=== PATIENT | male | born 1960 | race Caucasian/White ===

== ENCOUNTER 2017-07-16 02:08 | Emergency (ER) | payer OTHER ==
[~2017-07-16] VITALS: Ht 185.4 cm; Wt 109.1 kg
== END 2017-07-16 03:51 | disposition left against medical advice (07) ==
LOC: SED 02:08
DX: Z02.89 Encounter for other administrative examinations (principal); Z53.21 Procedure and treatment not carried out due to patient leaving prior to being seen by health care provider

== ENCOUNTER 2017-07-19 09:17 | Emergency (ER) | payer OTHER ==
[~2017-07-19] VITALS: Ht 185.4 cm; Wt 100.0 kg
--- NOTE | 2017-07-19 09:18 | ED.REPORT ---
HPI-Extremity Problem Upper Date of Service Jul 19, 2017 ED Provider: Dr. Shoemaker The pt is a 57 y/o male with no pertinent hx who presents to the ED from intermediate with left hand ring finger injury, onset yesterday. His finger is now swollen and his ring is stuck on the finger. Nurses at the intermediate have not been able to remove it. There are no other complaints at this time. Nursing Notes Stated Complaint: SWOLLEN FINGER/RING CUT OFF Nursing Notes Reviewed: Yes Allergies: Coded Allergies: No Known Allergies (Unverified , 07/19/17) General Time Seen by MD: 09:18 Chief Complaint Finger injury left 4 Hx Obtained From: Patient Arrived By: Police Onset Occurred: Yesterday Symptom Duration: Since onset Location: : Finger left 4 Quality: Painful Severity: Current: Mild Severity: Maximum: Mild Recent Healthcare: Recent doctor visit Similar Sx Previous: No Past Medical History Past Medical History none reported Past Surgical History none reported Smoking History Unknown if Ever Smoker Ambulatory Status Independent Review of Systems Musculoskeletal: Reports: Extremity pain (left ring finger), Extremity swelling (left ring finger) Complete sys rev & neg: except as marked. Physical Exam Initial Vital Signs Vital Signs (First) Date Time Temp Pulse Resp B/P Pulse Ox O2 Delivery O2 Flow Rate FiO2 07/19/17 09:23 35.4 72 16 164/114 94 Room Air Initial VS: Reviewed Head / Eyes: Atraumatic, Normocephalic Neck: Supple, Non-tender, Full range of motion Respiratory: No respiratory distress Cardiovascular: Regular rate & rhythm, Intact distal pulses Abdomen / GI: Soft, Non-tender, No guarding, No rebound, No distention Lower Extremities: Vascular intact, Neuro intact, No swelling, No tenderness Skin: Warm, Dry, No cyanosis Neurologic: Alert, Oriented, Nonfocal General/Constitutional: Awake, Alert, No acute distress, Cooperative Upper Extremity / MS: Atraumatic, Full range of motion, No swelling, Non-tender , No erythema, No deformity, Neurologic intact, Vascular intact Wrist / Hand: Atraumatic, Full range of motion, No erythema, No deformity, Neurologic intact, Vascular intact Ring on left finger with diffuse swelling. Normal cap refull. Tenderness at the 4th MCP joing and 4th PIP joint. Interpretation & Diagnostics X-Ray Interpretation Xray Interpretation: IMPRESSION: 1. Mildly angulated fracture involving the proximal phalanx of the 4th digit without definite intra-articular extension. 2. Mild to moderate degenerative changes of the left hand. Dictated by: Mike Kerr M.D. on 07/19/2017 at 9:29 Approved by: Mike Kerr M.D. on 07/19/2017 at 9:31 X-Ray Ordered: Hand left Procedures Procedure Notes: Ring removed using a standard ring cutter. Splint Application - Fx Mgt Splint Application- Fx Mgt: Wooden tongue placed on the 4th finger and paper tape used to jos tape the 4th finger to 3rd finger. Time: 10:41 Procedure Performed by: Nurse Post-Procedure / Complications: Cap refill normal, Post splint vascular nl, Post splint neuro nl, Condition improved, Tolerated procedure well, Patient stable Re-Eval/Medical Decision Re-Evaluation/Progress #1: Time of Eval: 09:50 Re-Evaluation/Progress Note: Ring removed. Discussed the plan to take an X-ray. The pt understand and agrees. All questions answered. Re-Evaluation/Progress #2: Time of Eval: 10:37 Re-Evaluation/Progress Note: Rechecked pt. Discussed imaging results, diagnosis and plan to discharge. Pt understands and agrees with the plan. F/U instruction and RTER warning given. All questions addressed. Counseled Regarding: Diagnosis, Need for follow-up, When/why to return to ED Discharge & Departure Impression: Primary Impression: Fracture of phalanx of hand Disposition: Home Discharge Condition All VS Reviewed: Yes Condition: Stable Additional Instructions: You are fit for Care Home. You fractured your fourth finger. Follow-up with intermediate medical regarding this. Leave the splint in place. Follow-up with orthopedics as needed. Return to the ER as needed. Referrals: Anuradha Keenan (PCP) Byron Abarca MD (Family) Scribe Attestation Portions of this note were transcribed by Alan Manuel. I,, personally performed the history,physical exam and medical decision-making;I reviewed and confirmed the accuracy of the information in the transcribed note. Signed by John Panchal. 07/19/17 copies to: Anuradha Keenan Timothy S DO Jul 19, 2017 09:18 Alan Manuel Jul 19, 2017 09:26
[2017-07-19 09:23] VITALS: BP 164/114; PULSE 72; RESP 16; O2SAT 94
--- NOTE | 2017-07-19 10:33 | DRSVH ---
PROCEDURE: X-RAY LEFT HAND, MINIMUM THREE VIEWS ([id number]) INDICATIONS: 4th finger pain TECHNIQUE: 3 views of the hand(s) acquired. COMPARISON: None. FINDINGS: Bones: There is an obliquely oriented fracture identified involving the proximal to mid shaft of the proximal phalanx of the 4th digit. No definite intra-articular extension is appreciated. There is n o dislocation. No additional fractures are evident. Mild volar angulation of the fracture is eviden t. There are severe degenerative changes noted involving the proximal interphalangeal joint of the 5 th digit. Additional [id number] degenerative changes involving the interphalangeal joints and metacarpal phalangeal joints of the hand are present. There are mild to moderate degenerative change s involving the basal joints of the thumb. No suspicious osseous lesions are evident. The bone mine ralization is within normal limits. Soft tissues: No suspicious soft tissue calcifications. Soft tissue swelling involving the 4th fing er is present. No radiopaque foreign bodies are evident. IMPRESSION: 1. Mildly angulated fracture involving the proximal phalanx of the 4th digit without definite intra- articular extension. 2. Mild to moderate degenerative changes of the left hand. Dictated by: Mike Kerr M.D. on 07/19/2017 at 9:29 Approved by: Mike Kerr M.D. on 07/19/2017 at 9:31
[2017-07-19 10:56] VITALS: BP 175/106; PULSE 63; RESP 16; O2SAT 96
== END 2017-07-19 11:00 | disposition home or self-care (01) ==
LOC: SED 09:17
DX: S62.615A Displaced fracture of proximal phalanx of left ring finger, initial encounter for closed fracture (principal); X58.XXXA Exposure to other specified factors, initial encounter; Y93.89 Activity, other specified; Y99.8 Other external cause status; Y92.9 Unspecified place or not applicable; Z04.8 Encounter for examination and observation for other specified reasons

== ENCOUNTER 2017-07-30 09:58 | Inpatient (IN) | payer OTHER ==
[2017-07-30] VITALS (8 sets, daily range): BP systolic 125–161; BP diastolic 53–95; PULSE 54–103; RESP 16–20; O2SAT 93–97
[~2017-07-30] VITALS: Ht 185.4 cm; Wt 100.2 kg
[2017-07-30] MEDS: Lactated Ringer's 1,000 ML IV SCH ×4 (06:00→18:17)
[~2017-07-30 09:58] MED LIST: AMLO10TA3 PO; CeFAZolin Inj 2 GM in IV Premix 1 EACH IV ONE; Lactated Ringer's 1,000 ML IV SCH
--- NOTE | 2017-07-30 11:43 | DRSVH ---
PROCEDURE: X-RAY TOES, TWO VIEWS INDICATIONS: PRE-OP ASSESSMENT OF POSSIBLE BROKEN TOE TECHNIQUE: 3 views of the left toe(s) acquired. COMPARISON: None. FINDINGS: Bones: Postoperative changes are present related to fusion of the 4th toe. Partially threaded cannul ated screw is evident extending across the fused toe. Mild lucency surrounding the screws within the proximal phalangeal portion is evident. No complete bony fusion is evident at the fused joint. Add itional degenerative changes are noted involving the forefoot joints. No acute fracture is evident. There is no dislocation. Soft tissues: No suspicious soft tissue densities. IMPRESSION: Postoperative changes of the left 4th toe without acute fracture. Mild lucency surroundi ng the screw threads within the proximal phalangeal portion is suggestive of orthopedic hardware loos ening versus less likely infection. Dictated by: Mike Kerr M.D. on 07/30/2017 at 10:17 Approved by: Mike Kerr M.D. on 07/30/2017 at 10:41
--- NOTE | 2017-07-30 11:47 | PCM.CHPPOD ---
Subjective Date of service Jul 30, 2017 History of Present Illness 57-year-old male evaluated resting comfortably in the same day surgery unit. Podiatry consult it for evaluation of left fourth toe abscess/cellulitis. Patient states that he had a left fourth digit hammertoe correction performed by Dr. Maya burr a few years ago. This patient is currently incarcerated at [facility]. Patient states that he was recently receiving antibiotics however his toe has progressed and worsened. He states that recently saw Dr. Leyva for treatment of a finger fracture and was scheduled for surgical intervention. At the time of his preoperative evaluation he was prescribed additional oral antibiotics however this patient states that he never received these antibiotics and has not been taking them. Due to the issue with his toe his open reduction internal fixation of his finger has been canceled today. Patient denies any significant past medical history. Allergy Allergies: Coded Allergies: No Known Allergies (Unverified , 07/28/17) Medications Amlodipine (Amlodipine) 10 Mg Tablet 10 MG PO DAILY Past Medical History Surgeries: No Medical History: Surgical History: Social History Hx Substance Use: No Smoking Status: Unknown if Ever Smoker Podiatry Consult Exam Vital Signs Vital Sign - Last Date Time Temp Pulse Resp B/P Pulse Ox O2 Delivery O2 Flow Rate FiO2 07/30/17 10:15 36.4 62 16 151/95 97 Room Air Exam General: Alert, Oriented X3, Cooperative, No Acute Distress Neuro: Normal Speech, Strength at 5/5 x4 ext, Sensation Intact Lower Extremities: Left: Extremity warm Lower Extremity Pulses: Palpable: Left Dorsalis Pedis Left Posterior Tibal Podiatry WOUND : Wound Location/Description Erythema of the left fourth digit extending to the fourth metatarsal phalangeal joint. There is an abscess of the left fourth distal digit with mild purulent drainage noted. No loosening of the toenail is noted. Mild malodor is present. Pedal pulses are palpable. Gross sensation is intact. Patient has a history of arthrodesis of the left fourth digit with an intramedullary screw Assessment & Plan Assessment Abscess cellulitis with possible osteomyelitis of the left fourth toe Problems: Plan Patient evaluated today. This patient will require urgent incision and drainage of the left fourth digit abscess with removal of underlying hardware. I have discussed with the patient today that there is a significant possibility he may have already developed osteomyelitis of his fourth digit which may require amputation in the near future. Open reduction internal fixation of his finger has been canceled by Dr. Leyva today and he will be scheduled for surgical intervention of his left foot instead. I recommend admission to [facility] for IV antibiotic therapy. IV antibiotics will be started at this time with broad-spectrum antibiotics vancomycin/Zosyn, wound cultures will be taken during surgery and followed closely alter antibiotic choice as needed. This patient is currently partial weightbearing to his left heel as tolerated. This information has been discussed with the patient and the office or in charge of monitoring him during surgery today. Car Carvalho DPM Jul 30, 2017 11:47
[2017-07-30] MEDS ORDERED: Piperacillin-Tazo 3.375 Gm Inj 3.375 GM in Dextrose 5% Minibag Plus 50 ML IV ONE (11:55)
[2017-07-30] MEDS ORDERED: Vancomycin Inj 1,500 MG in 0.9% Sodium Chloride 500 ML IV ONE (12:15)
--- NOTE | 2017-07-30 14:20 | PCM.HPANE ---
Patient Data Surgeon Admitting Provider: Attending Provider:Lion Leyva MD Primary Care Physician:Anuradha Keenan Other Provider:Day Steele Anesthesia Reason for Visit Left Ring Finger Proximal Phalangeal Fracture Ht/WT & BMI Height (Feet): 6 Height (Inches): 1 Weight (Kilograms): 100.2 Body Mass Index 29.00 Allergies Coded Allergies: No Known Allergies (Unverified , 07/28/17) Past Anesthesia History Anesthesia History: Denies:: Anesthesia Reactions, Fam Anesthesia Reaction, Fam Malignant Hypertherm, Malignant Hyperthermia Diabetes History Hx Diabetes?: No MRSA MRSA: No Medications Hypertension Medication: No Home Meds Incl Beta Benny: No Reported Medications Amlodipine 10 Mg [id number] Mg PO DAILY Ref 0 07/28/17 Discontinued Reported Medications Sulfamethoxazole/Trimeth 800-160 mg (Bactrim DS)1 Each Tablet1 Tablet PO BID Ref 0 07/28/17 Ibuprofen 800 Mg [id number] Mg PO TID PRN For Pain Ref 0 07/28/17 Lorazepam 1 Mg Tablet1 Mg PO TID PRN For Anxiety Ref 0 07/28/17 History History of ENT Problems?: No HEENT History: Denies:: Cataracts Glaucoma Hearing Problem Denture Type: None Teeth Condition: Broken Teeth Tooth Decay Missing Teeth Hx of Heart Problems?: No Cardiovascular History: Denies:: AICD Abdominal Aortic Aneurism Atrial Fibrillation Cardiac Surgery Chest Pain Coronary Artery Disease Edema Heart Murmur Hypertension Pacemaker Peripheral Vascular Rheumatic Fever Thrombophlebitis Valvular Heart Disease Hx of Respiratory Problem?: No Respiratory History: Denies:: Asthma COPD Chest Surgery Cough Dyspnea Emphysema Hemoptysis Oxygen Administration Pneumonia Pulmonary Embolism Tuberculosis Use of C-PAP Machine Use of Inhalers / NEBS Hx Neurologic Problems?: No Neurological History: Denies:: Alzheimer's Disease CVA Dementia Dizziness Headaches Multiple Sclerosis Parkinson's Disease Seizures TIA Hx of GI Problems?: No Hx of Problems?: No Male Hx: Denies:: Prostate Problems Scrotal Mass Testicular Surgery Skin History: Denies:: History Skin Disorders? Pressure Ulcers Hx Musculoskeletal Problems?: No Musculoskeletal History: Denies:: Back Injury Degenerative Joint Fibromyalgia Joint Replacement Musculoskeletal Trauma Myasthenia Gravis Osteoarthritis Rheumatoid Arthritis Systemic Lupus Hx of Psycho/Social Problems?: No Hx Surgeries?: No Hx Any Other Health Problems?: No Other History: Denies:: Cancer Endocrine Disease Hospitalization Thyroid Disease History Blood Transfusions: Denies:: Accept Blood Products? Blood Transfuse Reaction Blood Transfusions Hx Diabetes: No Hx Substance Use: No Smoking Status: Unknown if Ever Smoker Have You Smoked inLast 12 mo: Yes Stop/Bang S-Snoring: Do You Snore Loudly: No T-Tired: feel tired, fatigued: No O-Obsered: Observed not breath: No P-Blood Pressure: treated: No B- Body Mass Index > 35 kg/m2: No A- Age over 50: Yes N- Neck Large Circumference: No G- Gender Male: Yes VIPIN Total Score: 2 Risk Assessment Category Category 1A: Patient has history of documented sleep apnea, and HAS NOT received any narcotic, sedative or anesthesia administration during this stay. Category 1B: Patient has history of documented sleep apnea, and HAS received any narcotic , sedative or anesthesia administration during this stay Category 2: Patient has SUSPECTED Obstructive Sleep Apnea, and HAS received any narcotic , sedative or anesthesia administration during this stay. Category 3: Patient has SUSPECTED Obstructive Sleep Apnea and HAS NOT received narcotic, sedative or anesthesia administration during this stay. Category 4: Outpatient in Procedural Areas with known sleep apnea or who screen positive for High Risk via the STOP/BANG questionnaire. Exam Exam Vital Signs Vital Signs Date Time Temp Pulse Resp B/P Pulse Ox O2 Delivery O2 Flow Rate FiO2 07/30/17 10:15 36.4 62 16 151/95 97 Room Air General Appearance: Alert, Oriented X3 HEENT/AIRWAY: MP 2, Neck Movement (FROM) Lungs: Clear to Auscultation, Clear to Percussion Heart: Exam Unremarkable, Regular Rate/Rhythm Meds/Labs/Diagnostics Admission Meds Current Medications Vancomycin HCl/ Dextrose/Water (Vancocin Inj/ D5W) 500 ml @ 333.333 mls/hr ONCE ONCE IV Last administered on 07/30/17t 13:02; Start 07/30/17 at 11:55; Stop 07/30/17 at 12:12; Status DC Plan Impression Patient chart reviewed, patient interviewed and anesthestic plan with risks, benefits, and alternatives discussed, and informed consent obtained. ASA Physical Status: ASA2 Mod Systemic Disease Anesthetic Plan: MAC (with GA as backup) Bene/Risks/Altern/Consents: Yes HP Complete Prior to Induction: Yes Osmar Espinoza MD Jul 30, 2017 14:16
[2017-07-30] MEDS ORDERED: Bupivacaine-MPF 0.5% 30 mL Inj INFILTRATE ONE (15:00)
[2017-07-30] MEDS ORDERED: Atropine 0.4 mg/mL Inj IVPUSH PRN (15:05)
[2017-07-30] MEDS ORDERED: HYDROmorphone 1 mg/mL Inj IVPUSH PRN (15:05)
[2017-07-30] MEDS ORDERED: fentaNYL-PF 50 mCg/mL 2 mL Inj IVPUSH PRN (15:05)
[2017-07-30] MEDS ORDERED: EPHEDrine Sulfate 50 mg/mL Inj IVPUSH PRN (15:05)
[2017-07-30] MEDS ORDERED: Lactated Ringer's 500 ML IV PRN (15:05)
[2017-07-30] MEDS ORDERED: Ondansetron 2 mg/mL 2 mL Inj IVPUSH PRN ×2 (15:05→16:35)
[2017-07-30] MEDS ORDERED: Lactated Ringer's 1,000 ML IV SCH (15:05)
[2017-07-30] MEDS ORDERED: Phenylephrine 10,000 mCg/mL Inj IVPUSH PRN (15:05)
[2017-07-30] MEDS ORDERED: Labetalol 5 mg/mL 20 mL Inj IV PRN (15:05)
[2017-07-30] MEDS ORDERED: MetoCLOpramide 5 mg/mL 2 mL Inj IVPUSH PRN (15:05)
--- NOTE | 2017-07-30 15:31 | PCM.PODPO ---
Podiatry Operative Report Date of Service: Jul 30, 2017 Date of Service Jul 30, 2017 Pre Operative Diagnosis Abscess cellulitis left fourth toe Post Operative Diagnosis Same Procedure Incision and drainage left fourth digit with removal of hardware Surgeon Surgeon: Car Carvalho DPM Assistants: None Indication for Procedure Abscess cellulitis left fourth toe Findings Abscess of the distal left fourth toe associated with protruding left fourth digit internal fixation Details of Procedure Patient was identified in the preoperative holding area. A podiatry consultation was placed earlier today regarding an infected left fourth digit. This patient was previously scheduled for open reduction internal fixation of the left hand. The decision was made to cancel the hand procedure and to proceed with incision and drainage of his infected left fourth toe. This patient had a history of arthrodesis of the left fourth digit with a medullary screw. Patient was transported into the operating room and placed on the operating room table in the normal supine position. The patient was then prepped and draped in the normal aseptic technique. Attention was first paid to the left fourth toe. An abscess was noted of the left fourth distal phalanx. A wound culture was taken with a culture swab and a moderate amount of purulent discharge approximately 1.5 mL was noted. A #15 blade was used to make a transverse incision extending the present ulceration and additional 0.5 cm to a total of 1.3 cm x 0.8 cm x 0.7 cm in depth. The abscess site was closely flushed. Internal hardware was clearly visible within the abscess. The hardware was removed without issue. The wound was again closely flushed with large amounts of normal saline. A rongeur was utilized to remove any necrotic and nonviable soft tissue from the wound bed. Healthy bleeding tissue was exposed. This wound was then packed with 1/4 inch iodoform packing gauze dressed with 4 x 4 gauze Terra Kerlix and a minimally compressive Kermit bandage. The patient was awoken by anesthesia. No competitions occur during this procedure. Grafts, Implants: None Complications There were no periprocedural complications identified. Condition Stable Anesthetic Administered: MAC Catheters: None Output, Estimated Blood Loss: 10 Blood Admin during surgery: No Surgical Cast or Splint: None Surgical Specimen Removed: No Specimen sent to Pathology: No Post Operative Plan Suggest admission to hospitalist service for IV antibiotic therapy with podiatry consultation for local wound care Keep dressing clean dry and intact, dressing is to be changed by podiatry service only. Continue current IV antibiotics vanco/Zosyn unless suggested otherwise by hospitalist service recommendation Transfer to room 1006 when stable to continue care Advance diet as tolerated Car Carvalho DPM Jul 30, 2017 15:31
--- NOTE | 2017-07-30 15:32 | PCM.ANEP1 ---
Post Anesthesia PACU Phase 1 Assessment Vital Signs Vital Signs Date Time Temp Pulse Resp B/P Pulse Ox O2 Delivery O2 Flow Rate FiO2 07/30/17 10:15 36.4 62 16 151/95 97 Room Air Anesthetic Administered: MAC Level of Alertness: Awake, talking COATES's with Equal Strength: Yes Pain: No Nausea or Vomiting: No CV Function & Hydration Stable: Yes Airway Device: Oxygen Delivery: Room Air Lungs: Clear to Auscultation, Clear to Percussion PACU Phase 2 Assessment Complications: No Follow up Care: No Patient Instructions Provided: N/A Comments See anesth record for PACU VS. Anesth PACU VSS Osmar Espinoza MD Jul 30, 2017 15:32
--- NOTE | 2017-07-30 16:00 | NUR ---
Arrived on Unit Patient arrived on floor from PACU in stable condition. Patient transferred self from stretcher to bed. VSS. Denies pain and nausea at this time. Dressing CDI. LR @80mL/hr. RA. Patient orientated to call light, bed, and BRP. Call light and tray table within reach. Will continue to monitor patient hourly.
--- NOTE | 2017-07-30 16:22 | PCM.HPMED ---
Subjective Date of Service Jul 30, 2017 Primary Provider: Admitting Physician: Primary Care Physician: Anuradha Keenan Attending Physician: Lion Leyva MD Chief Complaint: Pain in the left 4th toe History of Present Illness: Patient was past medical history of hypertension, alcoholism(last drink 2 weeks ago), left fourth digit hammertoe correction performed by Dr. Maya burr a few years ago. Patient developed pain in his 4th toe. He was evaluated by cell tester and advised admission to the hospital for evaluation and treatment of Abscess cellulitis with possible osteomyelitis of the left fourth toe with urgent incision and drainage of the left fourth digit abscess with removal of underlying hardware. Today patient underwent I&D. After the surgery he is doing well. Cultures were sent today. Review of Systems: REVIEW OF SYSTEMS: GENERAL: no malaise, no fevers., SEE HPI HEENT: Negative for frequent or significant headaches All other reviewed and negative other than HPI. Allergies Coded Allergies: No Known Allergies (Unverified , 07/28/17) PMH Family History Hypertension Social History Hx Alcohol Use: Yes Hx Substance Use: No Hx Tobacco Use: No Smoking Status: Unknown if Ever Smoker Exam Vital Signs Vital Sign - Last Date Time Temp Pulse Resp B/P Pulse Ox O2 Delivery O2 Flow Rate FiO2 07/30/17 15:50 36.5 64 16 147/60 96 Room Air Exam GENERAL: Alert, not in distress, cooperative HEAD: atraumatic, normocephalic, no bruises. EYES: MELLISSA, EOMI, anicteric, able to fully open and close eyelids SKIN: Skin color normal, turgor normal. No visible rashes or lesions. EAR, NOSE, MOUTH, THROAT: Lips, oral mucosa, tongue gums, oropharynx are moist , pink, no lesions. Ears normal appearance, no lesions. NECK: no jugulovenous distention; supple ROM normal. RESPIRATORY: Lungs clear to auscultation. Good diaphragmatic excursion. CARDIAC: normal S1 and S2; no rubs, murmurs, or gallops; regular rate and rhythm ABDOMEN: Abdomen soft, non-tender. BS normal. No masses or organomegaly. MUSCULOSKELETAL: ROM full, muscles are not tender EXTREMITIES: no pitting edema in LE, no new deformities or skin discoloration. L foot in dressing. NEURO: Alert, oriented X 3, Sensation grossly intact., Cranial nerves II-XII intact, Grossly normal motor function. PULSES: 2+ radial, 2+ carotid Lab and Diagnostics X-Rays, CTs and MRIs XR IMPRESSION: Postoperative changes of the left 4th toe without acute fracture. Mild lucency surrounding the screw threads within the proximal phalangeal portion is suggestive of orthopedic hardware loosening versus less likely infection. Assessment & Plan 57-year-old male with a past medical history of hypertension, alcoholism, status post left 4th digit hammertoe correction several years ago admitted for evaluation of pain in the L fourth left toe. Patient underwent I and D with hardware removal today. Cultures were sent. Patient was started on vancomycin and Zosyn IV. Cellulitis/abscess of the fourth digit, status post I&D - Stable - Continue with IV vancomycin/Zosyn - Follow up cultures Hypertension - Stable - Continue with amlodipine Alcoholism - last drink 2 weeks ago - No need for CIWA DVT PROPHYLAXIS: heparin Code status: full code Disposition: discharge in 1-3 days after patient improves. Labs, radiology tests reviewed. Plan of care, medication side effects, home medication, diagnostic procedures and available alternatives were discussed and reviewed with patient. All questions answered. Patient verbalized understanding, approved and agreed to plan of care. - Dharmesh Becker MD Jul 30, 2017 16:22
[2017-07-30] MEDS ORDERED: Alum-Mag Hydrox-Simeth 30 mL Suspension PO PRN (16:35)
[2017-07-30] MEDS: Vancomycin Dose per Pharmacist XX SCH (16:40)
[2017-07-30 17:18] LABS: BASOPHILS % (AUTO) 0.6 % (0-3); EOSINOPHILS % (AUTO) 1.9 % (0-5); MONOCYTES % (AUTO) 9.9 % (4-12); Mean Corpuscular Hemoglobin 30.5 pg (27.0-35.0); Mean Corpuscular Volume 90.3 fL (81-100); NEUTROPHILS % (AUTO) 57.4 % (40-74); Platelet Count 228 bil/L (150-400)
--- NOTE | 2017-07-30 18:01 | PCM.CONPHA ---
Subjective Requesting Provider: Dharmesh Becker MD Pain in the left 4th toe Reason for Pharmacy Consult: Vancomycin Dosing Assessment/Plan Assessment/Plan Vancomycin dosing for patient with a 4th toe abscess and cellulitis who is just post I and D with hardware removal: Goal trough= 15-20 Ht 73 inches Wt 100 K Serum Cr 0.99 [facility]inine Cl[facility] WBC=4.8 Vancomycin 1.5 Grams IV was given at 1300. Subsequent dosing will be vancomycin 1.75 Grams IV q 12 hours (dosing confirmed in [facility]) with a trough prior to the 4th total dose scheduled for midnight the morning of . Pharmacy will follow renal function and evaluate the trough for any necessary dosing adjustments. The patient is receiving pip/tazo concurrently. Radha Hernandez [facility] Jul 30, 2017 18:00
[2017-07-30] MEDS: HYDROcodone-APAP 5-325 mg Tablet PO PRN ×2 (18:17→23:12)
[2017-07-30] MEDS ORDERED: Piperacillin-Tazo 3.375 Gm Inj 3.375 GM in Dextrose 5% Minibag Plus 50 ML IV SCH (18:30)
[2017-07-30] MEDS: HYDROmorphone 0.5 mg/0.5 mL iSecure Syringe IVPUSH PRN (19:47)
[2017-07-31 00:52] VITALS: BP 132/83; PULSE 60; RESP 18; O2SAT 96
[2017-07-31] MEDS: Vancomycin Inj 1,750 MG in 0.9% Sodium Chloride 500 ML IV SCH ×2 (01:49→14:59)
[2017-07-31] MEDS: HYDROmorphone 0.5 mg/0.5 mL iSecure Syringe IVPUSH PRN (01:50)
--- NOTE | 2017-07-31 06:15 | NUR ---
Peripheral IV Patient pulled his IV out. New peripheral IV was started and patients IV medications were continued where they left off. Patient states pain is 4/10 this morning after sleeping for a while. Pain medications given. Care coninues.
[2017-07-31 06:29] VITALS: BP 125/53; PULSE 103; RESP 16; O2SAT 97
[2017-07-31] MEDS: Lactated Ringer's 1,000 ML IV SCH ×2 (07:00→19:30)
[2017-07-31] MEDS: HYDROcodone-APAP 5-325 mg Tablet PO PRN ×3 (07:04→18:14)
[2017-07-31] MEDS: Vancomycin Dose per Pharmacist XX SCH (08:30)
[2017-07-31] MEDS: Piperacillin-Tazo 3.375 Gm Inj 3.375 GM in Dextrose 5% Minibag Plus 50 ML IV SCH ×2 (10:17→18:12)
--- NOTE | 2017-07-31 10:22 | PCM.PNPOD ---
Subjective Date of Service: Jul 31, 2017 Date of Service: Jul 31, 2017 Visit Information: Reason for Visit Left Ring Finger Proximal Phalangeal Fracture Surgery/Surgery Date I&D L FOOT W/REMOVAL OF HARDWARE 07/30/17 Post-Op Day # Date of Admission: Hospital Day # Subjective: 57-year-old male who underwent removal of infected screw fourth digit left foot yesterday byDr Carvalho, is seen this morning for follow-up and dressing change. Patient complains of mild to moderate pain in the toe possibly due to bandage being slightly tight. He denies constitutional symptoms such as fever chills or malaise. Objective Vital Sign - Last Date Time Temp Pulse Resp B/P Pulse Ox O2 Delivery O2 Flow Rate FiO2 07/31/17 06:29 36.8 103 16 125/53 97 Room Air Intake and Output 07/30/17 07/30/17 07/31/17 Cumulative From/Thru 15:00 23:00 07:00 07/28/17 11:38 - 07/31/17 06:29 Intake Total 550 ml 670 ml 800 ml 2020 ml Output Total 10 ml 510 ml 2200 ml 2720 ml Balance 540 ml 160 ml -1400 ml -700 ml Intake Oral 620 ml 800 ml 1420 ml IV Total 550 ml 50 ml 600 ml Output Urine Total 500 ml 2200 ml 2700 ml Estimated Blood Loss 10 ml 10 ml 20 ml # Bowel Movements 0 0 0 Result Diagram: 07/30/17 1710 07/31/17 0520 Lab Test 07/30/17 17:10 07/31/17 05:20 White Blood Count 4.8th/mm3 (3.8-10.1) Red Blood Count 4.76mil/mm3 (4.40-5.80) Hemoglobin 14.5g/dL (13.8-17.2) Hematocrit 43.0% (41.0-50.0) Mean Corpuscular Volume 90.3fL (81-100) Mean Corpuscular Hemoglobin 30.5pg (27.0-35.0) Mean Corpuscular Hemoglobin Concent 33.7% (32.0-37.0) Red Cell Distribution Width 12.5% (12.3-15.4) Platelet Count 228bil/L (150-400) Neutrophils (%) (Auto) 57.4% (40-74) Lymphocytes (%) (Auto) 30.2% (14-46) Monocytes (%) (Auto) 9.9% (4-12) Eosinophils (%) (Auto) 1.9% (0-5) Basophils (%) (Auto) 0.6% (0-3) Sodium Level 139mEq/L (134-144) Potassium Level 3.7mEq/L (3.5-5.2) Chloride Level 101mEq/L (97-108) Carbon Dioxide Level 25mmol/L (18-29) Blood Urea Nitrogen 11mg/dL (6-24) Estimat Glomerular Filtration Rate 83mL/min (>59) Glucose Level 99mg/dL (60-99) Calcium Level 8.8mg/dL (8.5-10.1) Total Bilirubin 0.3mg/dL (0.0-1.2) Aspartate Amino Transf (AST/SGOT) 20U/L (0-50) Alanine Aminotransferase (ALT/SGPT) 33U/L (0-44) Alkaline Phosphatase 70U/L (25-150) Total Protein 6.9g/dL (6.4-8.4) Albumin 4.0g/dL (3.4-5.0) Creatinine 0.93mg/dL (0.76-1.27) Exam General: Alert, Oriented X3, Cooperative, No Acute Distress Lungs: Clear to Auscultation, Clear to Percussion Lower Extremities: Left: Extremity warm Lower Extremity Pulses: Palpable: Left Dorsalis Pedis Left Posterior Tibal Surgical Cast or Splint: None Additional Information: Dressing of the left foot dry and intact. Upon removal fourth digit is noted to be diffusely edematous and mildly hyperemic with no apparent extension proximal to the fourth metatarsal phalangeal joint. There is a 5 x 5 mm distal wound with Nu Gauze packing. Slight purulence noted upon removal of this packing. Pulses are readily palpable, capillary refill is brisk, the foot is sensate. Assessment & Plan Impression Probable osteomyelitis of fourth digit left foot Problems: Plan Discussed findings with patient he is aware that amputation of the fourth digit may be necessary but prefers to defer this at least for several days pending response to continued IV or by mouth antibiotics. A Betadine solution dressing and noncompressive gauze bandage is reapplied. We will obtain postoperative radiographs and since infection is well localized to the toe with no significant proximal extension this condition could be managed as an outpatient however this determination will be left to the hospitalist staff, podiatry will continue to follow as an inpatient and if patient is discharged he should remain on appropriate by mouth antibiotics, applied Betadine solution dressing to the tip of the toe once daily followed by a noncompressive gauze bandage, use a postoperative shoe and make an appointment with either or myself for early next week. Marco Colindres DPM Jul 31, 2017 10:22
--- NOTE | 2017-07-31 10:58 | PCM.PNMED ---
Subjective Date of Service Jul 31, 2017 Exam Vital Signs Vital Sign - Last Date Time Temp Pulse Resp B/P Pulse Ox O2 Delivery O2 Flow Rate FiO2 07/31/17 06:29 36.8 103 16 125/53 97 Room Air Intake and Output 07/30/17 07/30/17 07/31/17 Cumulative From/Thru 15:00 23:00 07:00 07/28/17 11:38 - 07/31/17 06:29 Intake Total 550 ml 670 ml 800 ml 2020 ml Output Total 10 ml 510 ml 2200 ml 2720 ml Balance 540 ml 160 ml -1400 ml -700 ml Intake Oral 620 ml 800 ml 1420 ml IV Total 550 ml 50 ml 600 ml Output Urine Total 500 ml 2200 ml 2700 ml Estimated Blood Loss 10 ml 10 ml 20 ml # Bowel Movements 0 0 0 Lab and Diagnostics Result Diagram: 07/30/17 1710 07/31/17 0520 X-Rays, CTs and MRIs XR IMPRESSION: Postoperative changes of the left 4th toe without acute fracture. Mild lucency surrounding the screw threads within the proximal phalangeal portion is suggestive of orthopedic hardware loosening versus less likely infection. Assessment & Plan 57-year-old male with a past medical history of hypertension, alcoholism, status post left 4th digit hammertoe correction several years ago admitted for evaluation of pain in the L fourth left toe. Patient underwent I and D with hardware removal today. Cultures were sent. Patient was started on vancomycin and Zosyn IV. Cellulitis/abscess/osteomyelitis of the fourth digit, status post I&D - Stable - POdietry following - abscess culture - STAPH, PROBABLE STAPH AUREUS Plan - Continue with IV vancomycin/Zosyn - Follow up cultures - Podiatry recommended - amputation of the fourth digit may be necessary; patient would like to think about it. Hypertension - Stable - Continue with amlodipine Alcoholism - last drink 2 weeks ago - No need for CIWA DVT PROPHYLAXIS: heparin Code status: full code Labs, radiology tests reviewed. Plan of care, medication side effects, home medication, diagnostic procedures and available alternatives were discussed and reviewed with patient. All questions answered. Patient verbalized understanding, approved and agreed to plan of care. - VTE Mechanical Devices: Intermittant Pneumatic CD Dharmesh Becker MD Jul 31, 2017 10:58
--- NOTE | 2017-07-31 11:48 | DRSVH ---
PROCEDURE: X-RAY LEFT FOOT COMPLETE, MINIMUM THREE VIEWS ([id number]) INDICATIONS: 4th toe infection left TECHNIQUE: 3 views of the foot were acquired. COMPARISON: None. FINDINGS: Bones: There are faint lucencies identified within the distal fourth phalanx and distal aspect of the fourth middle phalanx. Soft tissues: No tibiotalar joint effusion. Achilles tendon appears normal. Prominent fourth digit soft tissue edema is present. IMPRESSION: Fourth digit soft tissue edema with areas of lucency within the distal and middle phalanx es, suspicious for early osteomyelitis. Dictated by: Jamila Mckenzie M.D. on 07/31/2017 at 11:45 Approved by: aJmila Mckenzie M.D. on 07/31/2017 at 11:46
[2017-07-31 12:33] VITALS: BP 133/75; PULSE 70; RESP 16; O2SAT 94
[2017-07-31] MEDS: Polyethylene Glycol (PEG) 17 Gm Powder PO PRN (12:38)
--- NOTE | 2017-07-31 17:53 | NUR ---
Pain / Ambulation Pain 5-6/10 in left foot and 3/10 in hand. Pain controlled with 1tabs Vicodin as needed for pain Q4hrs. Ambulated gingerly as needed to bathroom heel touch only. Otherwise pt has been resting comfortably and making needs met appropriately. Care continues
[2017-07-31 20:18] VITALS: BP 138/75; PULSE 64; RESP 18; O2SAT 95
[2017-08-01] MEDS ORDERED: Vancomycin Serum Trough XX ONE
--- NOTE | 2017-08-01 01:01 | NUR ---
Pain Patient states that his pain has decreased and is a 2/10. No need for pain medication at this time. Patient A&OX3. UP independent at bedside using urinal. Vitals stable. Patient had a BM this shift. Care of patient turned over to Laquita CORNEJO at 0120.
--- NOTE | 2017-08-01 01:25 | NUR ---
Received report from Susan Guallpa
[2017-08-01] MEDS: HYDROcodone-APAP 5-325 mg Tablet PO PRN ×3 (01:50→22:41)
--- NOTE | 2017-08-01 02:54 | PCM.PHAPRO ---
Progress Date of Service: Aug 01, 2017 Requesting Provider: Dharmesh Becker MD Pain in the left 4th toe possible osteomyelitis - 57 y/o male patient is receiving Vancomycin (with Zosyn) for possible osteomyelitis 1750mg iv q12h. Last 24hr, I&D with hardware removal was performed; renal function is stable; and lactate ringer runs @80ml/hr - Trough level is at 15.2 with last Vancomycin dose was given 2 hours late. Considering the drug accumulation, will continue with current dose. - Patient is in stable condition and possible be discharged soon. Floor pharmacist will order next Vancomycin level if necessary Thank you Wilfredo Osborne, PharmD Maurilio Osborne Aug 01, 2017 02:54
[2017-08-01] MEDS: Vancomycin Inj 1,750 MG in 0.9% Sodium Chloride 500 ML IV SCH ×2 (03:36→13:30)
[2017-08-01] MEDS: Piperacillin-Tazo 3.375 Gm Inj 3.375 GM in Dextrose 5% Minibag Plus 50 ML IV SCH ×4 (05:17→21:09)
[2017-08-01 05:26] VITALS: BP 145/91; PULSE 60; RESP 18; O2SAT 96
--- NOTE | 2017-08-01 07:38 | PCM.PNMED ---
Subjective Date of Service Aug 01, 2017 Subjective No problems overnight. No fever. Pain under control. Exam Vital Signs Vital Sign - Last Date Time Temp Pulse Resp B/P Pulse Ox O2 Delivery O2 Flow Rate FiO2 08/01/17 05:26 36.9 60 18 145/91 96 Room Air Intake and Output 07/31/17 07/31/17 08/01/17 Cumulative From/Thru 15:00 23:00 07:00 07/28/17 11:38 - 08/01/17 07:00 Intake Total 3597 ml 2200 ml 7817 ml Output Total 1675 ml 2600 ml 6995 ml Balance 1922 ml -400 ml 822 ml Intake Oral 1397 ml 800 ml 3617 ml IV Total 2200 ml 1400 ml 4200 ml Output Urine Total 1675 ml 2600 ml 6975 ml Estimated Blood Loss 20 ml # Bowel Movements 0 0 Exam Skin: warm and dry 5-6 cm healing laceration to outer lower left leg with sutures HENT; dry no lesions Eyes; dante eom intact CV; reg no murmur Resp; Clear GI; soft non acute benign Neuro; CN 2-12 intact, no focal defects Extre; Bandages to Left foot, Bandages to left hand Lab and Diagnostics Result Diagram: 07/30/17 1710 08/01/17 0508 X-Rays, CTs and MRIs XR IMPRESSION: Postoperative changes of the left 4th toe without acute fracture. Mild lucency surrounding the screw threads within the proximal phalangeal portion is suggestive of orthopedic hardware loosening versus less likely infection. Assessment & Plan 57-year-old male with a past medical history of hypertension, alcoholism, status post left 4th digit hammertoe correction several years ago admitted for evaluation of pain in the L fourth left toe. Patient underwent I and D with hardware removal today. Cultures were sent. Patient was started on vancomycin and Zosyn IV. # Cellulitis/abscess/osteomyelitis of the left fourth digit foot, poa, active - status post I&D, removal of heardwear 07-30-17 - probable staph aures on culture, vanco and zosyn - Podiatry recommended - amputation of the fourth digit may be necessary; patient would like to think about it. - pain management with IV dilaudid prn if needed or oral norco #Subactue laceration to left leg above ankle, poa, stable -sutures placed ER about 07-14-17 -remove sutures #Broken finger left 4th, poa, active -fractured about 07-15-18 -Dr Wright waiting to operate on this until current toe infection improved or treated #Hypertension - Stable - Continue with amlodipine Alcoholism - last drink 2 weeks ago - No need for CIWA DVT PROPHYLAXIS: heparin Code status: full code Labs, radiology tests reviewed. Plan of care, medication side effects, home medication, diagnostic procedures and available alternatives were discussed and reviewed with patient. All questions answered. Patient verbalized understanding, approved and agreed to plan of care. - VTE Mechanical Devices: Intermittant Pneumatic CD Clarence Jacob MD Aug 01, 2017 07:38
[2017-08-01] MEDS: Vancomycin Dose per Pharmacist XX SCH (08:30)
--- NOTE | 2017-08-01 10:31 | PCM.PNPOD ---
Subjective Date of Service: Aug 01, 2017 Date of Service: Aug 01, 2017 Visit Information: Reason for Visit Left Ring Finger Proximal Phalangeal Fracture Surgery/Surgery Date I&D L FOOT W/REMOVAL OF HARDWARE 07/30/17 Post-Op Day # Date of Admission: Jul 30, 2017 at 16:12 Hospital Day # Subjective: Patient is seen 48 hours post removal of infected hardware fourth toe left foot. Patient notes decreased pain, states appetite is good. Denies fever chills malaise. He states he has aware comfortable with the probable necessity for digital amputation. Objective Vital Sign - Last Date Time Temp Pulse Resp B/P Pulse Ox O2 Delivery O2 Flow Rate FiO2 08/01/17 05:26 36.9 60 18 145/91 96 Room Air Intake and Output 07/31/17 07/31/17 08/01/17 Cumulative From/Thru 15:00 23:00 07:00 07/28/17 11:38 - 08/01/17 07:00 Intake Total 3597 ml 2200 ml 7817 ml Output Total 1675 ml 2600 ml 6995 ml Balance 1922 ml -400 ml 822 ml Intake Oral 1397 ml 800 ml 3617 ml IV Total 2200 ml 1400 ml 4200 ml Output Urine Total 1675 ml 2600 ml 6975 ml Estimated Blood Loss 20 ml # Bowel Movements 0 0 Result Diagram: 07/30/17 1710 08/01/17 0508 Lab Test 07/30/17 17:10 08/01/17 00:01 08/01/17 05:08 White Blood Count 4.8th/mm3 (3.8-10.1) Red Blood Count 4.76mil/mm3 (4.40-5.80) Hemoglobin 14.5g/dL (13.8-17.2) Hematocrit 43.0% (41.0-50.0) Mean Corpuscular Volume 90.3fL (81-100) Mean Corpuscular Hemoglobin 30.5pg (27.0-35.0) Mean Corpuscular Hemoglobin Concent 33.7% (32.0-37.0) Red Cell Distribution Width 12.5% (12.3-15.4) Platelet Count 228bil/L (150-400) Neutrophils (%) (Auto) 57.4% (40-74) Lymphocytes (%) (Auto) 30.2% (14-46) Monocytes (%) (Auto) 9.9% (4-12) Eosinophils (%) (Auto) 1.9% (0-5) Basophils (%) (Auto) 0.6% (0-3) Sodium Level 139mEq/L (134-144) Potassium Level 3.7mEq/L (3.5-5.2) Chloride Level 101mEq/L (97-108) Carbon Dioxide Level 25mmol/L (18-29) Blood Urea Nitrogen 11mg/dL (6-24) Estimat Glomerular Filtration Rate 83mL/min (>59) Glucose Level 99mg/dL (60-99) Calcium Level 8.8mg/dL (8.5-10.1) Total Bilirubin 0.3mg/dL (0.0-1.2) Aspartate Amino Transf (AST/SGOT) 20U/L (0-50) Alanine Aminotransferase (ALT/SGPT) 33U/L (0-44) Alkaline Phosphatase 70U/L (25-150) Total Protein 6.9g/dL (6.4-8.4) Albumin 4.0g/dL (3.4-5.0) Vancomycin Level Trough 15.2mcg/mL Creatinine 0.92mg/dL (0.76-1.27) Exam General: Alert, Oriented X3, Cooperative, No Acute Distress Lungs: Clear to Auscultation, Clear to Percussion Lower Extremities: Left: Extremity warm Lower Extremity Pulses: Palpable: Left Dorsalis Pedis Left Posterior Tibal Surgical Cast or Splint: None Additional Information: Reexam shows continued serous drainage distal fourth toe, the digit is approximately twice the diameter of the adjacent third toe although erythema is somewhat improved. There is no proximal extension beyond the metatarsal phalangeal joint. Repeat x-ray post screw removal does show significant intramedullary osteolysis of the distal interphalangeal joint, distal most proximal phalanx with minimal overt radiographic evidence of osteomyelitis of the proximal phalangeal base. Assessment & Plan Impression Osteomyelitis fourth toe left foot with questionable involvement of the proximal phalangeal base, patient will require at least partial fourth digit amputation. Problems: Plan Foot is redressed today, patient would like to proceed with amputation of the digit as soon as possible, will schedule in the a.m. Pain Management: Patient feels he needs less pain medication is advised he can ask for plain Tylenol or low-dose Vicodin rather than Percocet. Marco Colindres DPM Aug 01, 2017 10:31
[2017-08-01 12:50] VITALS: BP 141/90; PULSE 56; RESP 18; O2SAT 95
--- NOTE | 2017-08-01 14:36 | NUR ---
Social Work: Screening/Multidisciplinary Rounds D: EMR reviewed. Pt is a 57 y/o male [place] - readmit score not assigned - for left ring finger proximal phalangeal per H&P. Pt's insurance is [facility] and [facility]. PCP is GENE Jean. Pt's NOK is spouse Ilana Aguilar [phone]. SW met with pt to discuss DPOA/Advanced directive ppw. SW provided DPOA/advanced directive ppw and encouraged pt to return a copy to the hospital once complete. SW screened pt's EMR - pt does not screen in for full assessment. Pt discussed in multidisciplinary rounds and is not medically stable for discharge today - anticipate 2-3 more days. Pt to go to OR today for surgery. No anticipated discharge needs at this time, no MD orders received. SW will continue to follow for needs. Pt arrived from [facility] and was released for hospitalization. SW met with pt regarding discharge - pt stated he is required to self-report back to [facility] upon discharge. SW explained that is pt's responsibility. Pt asked if SW reports when pt is discharged - SW stated that the hospital does not report when pt's discharge due to HIPPA and it is pt's responsibility to return to [facility] if that is what is expected of him. Pt stated his spouse will transport pt back to [facility] when he is medically stable for discharge. A: Pt who is independent at baseline. P: Pt anticipated to discharge back to [facility] (self-report) with spouse to transport via POV. Pt to go to OR today. No discharge needs at this time, no MD orders received. SW will continue to follow for needs. GAMAL Virgen
--- NOTE | 2017-08-01 16:07 | NUR ---
Pain/operative plan Pt stated he wished to use "mortgage assistant" pain medication. Tylenol given; pt expressed satisfaction. Has since denied any pain in foot or finger. Plan to go to OR tomorrow am; pt aware of NPO after midnight instructions and agreeable.
--- NOTE | 2017-08-01 18:20 | NUR ---
Sutures L lower leg sutures removed and incision dressed by sash clamp operator.
[2017-08-01 19:30] VITALS: BP 137/75; PULSE 55; RESP 18; O2SAT 95
[2017-08-02] VITALS (11 sets, daily range): BP systolic 122–165; BP diastolic 75–101; PULSE 53–82; RESP 11–18; O2SAT 95–99
[2017-08-02] MEDS: Vancomycin Inj 1,750 MG in 0.9% Sodium Chloride 500 ML IV SCH (01:13)
[2017-08-02] MEDS: HYDROmorphone 0.5 mg/0.5 mL iSecure Syringe IVPUSH PRN ×2 (01:19→05:13)
--- NOTE | 2017-08-02 03:23 | NUR ---
Activity/pain Pt pain to foot from 4-05/08 and was taking 2 tab of [place] at beginning of shift to control pain. Pt reported this to be more effective than Tylenol alone. Pt made NPO at midnight and switched over to Dilaudid 0.5mg IVP. Pt reporting pain tolerable. Left foot dressed with Kermit wrap and is CDI.
[2017-08-02] MEDS: Piperacillin-Tazo 3.375 Gm Inj 3.375 GM in Dextrose 5% Minibag Plus 50 ML IV SCH ×4 (05:07→20:22)
[2017-08-02] MEDS: HYDROcodone-APAP 5-325 mg Tablet PO PRN ×4 (07:55→23:56)
[2017-08-02] MEDS ORDERED: Dexamethasone 4 mg/mL Inj ONE (09:03)
[2017-08-02] MEDS ORDERED: Propofol 10,000 mCg/mL 20 mL Inj ONE (09:03)
[2017-08-02] MEDS ORDERED: fentaNYL-PF 50 mCg/mL 2 mL Inj ONE (09:03)
[2017-08-02] MEDS ORDERED: MetoCLOpramide 5 mg/mL 2 mL Inj ONE (09:03)
--- NOTE | 2017-08-02 09:07 | PCM.PNMED ---
Subjective Date of Service Aug 02, 2017 Subjective Walking in room. No problems overnight. Plan is to do a partial amputation of toe today. Culture shows MSSa. Case discussed with Dr. Colindres in person yesterday evening. Exam Vital Signs Vital Sign - Last Date Time Temp Pulse Resp B/P Pulse Ox O2 Delivery O2 Flow Rate FiO2 08/02/17 07:53 60 18 165/94 96 Room Air 08/02/17 06:39 36.6 Intake and Output 08/01/17 08/01/17 08/02/17 Cumulative From/Thru 15:00 23:00 07:00 07/28/17 11:38 - 08/02/17 06:27 Intake Total 1708 ml 897 ml 98696 ml Output Total 2900 ml 1550 ml 35692 ml Balance -1192 ml -653 ml -1023 ml Intake Oral 1280 ml 400 ml 5297 ml IV Total 428 ml 497 ml 5125 ml Output Urine Total 2900 ml 1550 ml 15469 ml Estimated Blood Loss 20 ml # Bowel Movements 0 0 0 Exam Skin: warm and dry 5-6 cm healing laceration to outer lower left leg, sutures removed yesterday, not infected HENT; dry no lesions Eyes; dante eom intact CV; reg no murmur Resp; Clear GI; soft non acute benign Neuro; CN 2-12 intact, no focal defects Extre; Bandages to Left foot, Bandages to left hand, clean Lab and Diagnostics Result Diagram: 07/30/17 1710 08/01/17 0508 X-Rays, CTs and MRIs XR IMPRESSION: Postoperative changes of the left 4th toe without acute fracture. Mild lucency surrounding the screw threads within the proximal phalangeal portion is suggestive of orthopedic hardware loosening versus less likely infection. Assessment & Plan 57-year-old male with a past medical history of hypertension, alcoholism, status post left 4th digit hammertoe correction several years ago admitted for evaluation of pain in the L fourth left toe. Patient underwent I and D with hardware removal today. Cultures were sent. Patient was started on vancomycin and Zosyn IV. # Cellulitis/abscess/osteomyelitis of the left fourth digit foot, poa, active - status post I&D, removal of heardwear 07-30-17 - MSSA on culture of abscess, d/c vanco, continue Zosyn for now - consider ID consult request tomorrow - Podiatry recommended partial amputation of the fourth digit today, scheduled. - pain management with IV dilaudid prn if needed or oral norco #Subactue laceration to left leg above ankle, poa, stable -sutures placed ER about 07-14-17 -removed sutures #Broken finger left 4th, poa, active -fractured about 18 -Dr Wright waiting to operate on this until current toe infection improved or treated #Hypertension - Stable - Continue with amlodipine Alcoholism - last drink 2 weeks ago - No need for CIWA DVT PROPHYLAXIS: heparin Code status: full code Labs, radiology tests reviewed. Plan of care, medication side effects, home medication, diagnostic procedures and available alternatives were discussed and reviewed with patient. All questions answered. Patient verbalized understanding, approved and agreed to plan of care. - VTE Mechanical Devices: Intermittant Pneumatic CD Clarence Jacob MD Aug 02, 2017 09:07
[2017-08-02] MEDS ORDERED: HYDROcodone-APAP 5-325 mg Tablet PO PRN (09:10)
--- NOTE | 2017-08-02 11:37 | PCM.PNPOD ---
Subjective Date of Service: Aug 02, 2017 Date of Service: Aug 02, 2017 Visit Information: Reason for Visit Left Ring Finger Proximal Phalangeal Fracture Surgery/Surgery Date I&D L FOOT W/REMOVAL OF HARDWARE 07/30/17 Post-Op Day # Date of Admission: Jul 30, 2017 at 16:12 Hospital Day # Subjective: Patient is seen the morning of planned amputation fourth digit left foot for osteomyelitis and states he is feeling well, comfortable with the plan, choirs about his functional capacities postoperatively and we had a long discussion in this regard Objective Vital Sign - Last Date Time Temp Pulse Resp B/P Pulse Ox O2 Delivery O2 Flow Rate FiO2 08/02/17 07:53 60 18 165/94 96 Room Air 08/02/17 06:39 36.6 Intake and Output 08/01/17 08/01/17 08/02/17 Cumulative From/Thru 14:59 22:59 06:59 07/28/17 11:38 - 08/02/17 06:27 Intake Total 800 ml 1708 ml 897 ml 25431 ml Output Total 2600 ml 2900 ml 1550 ml 21415 ml Balance -1800 ml -1192 ml -653 ml -1023 ml Intake Oral 800 ml 1280 ml 400 ml 5297 ml IV Total 428 ml 497 ml 5125 ml Output Urine Total 2600 ml 2900 ml 1550 ml 24148 ml Estimated Blood Loss 20 ml # Bowel Movements 0 0 0 Result Diagram: 07/30/17 1710 08/01/17 0508 Lab Test 07/30/17 17:10 08/01/17 00:01 08/01/17 05:08 White Blood Count 4.8th/mm3 (3.8-10.1) Red Blood Count 4.76mil/mm3 (4.40-5.80) Hemoglobin 14.5g/dL (13.8-17.2) Hematocrit 43.0% (41.0-50.0) Mean Corpuscular Volume 90.3fL (81-100) Mean Corpuscular Hemoglobin 30.5pg (27.0-35.0) Mean Corpuscular Hemoglobin Concent 33.7% (32.0-37.0) Red Cell Distribution Width 12.5% (12.3-15.4) Platelet Count 228bil/L (150-400) Neutrophils (%) (Auto) 57.4% (40-74) Lymphocytes (%) (Auto) 30.2% (14-46) Monocytes (%) (Auto) 9.9% (4-12) Eosinophils (%) (Auto) 1.9% (0-5) Basophils (%) (Auto) 0.6% (0-3) Sodium Level 139mEq/L (134-144) Potassium Level 3.7mEq/L (3.5-5.2) Chloride Level 101mEq/L (97-108) Carbon Dioxide Level 25mmol/L (18-29) Blood Urea Nitrogen 11mg/dL (6-24) Estimat Glomerular Filtration Rate 83mL/min (>59) Glucose Level 99mg/dL (60-99) Calcium Level 8.8mg/dL (8.5-10.1) Total Bilirubin 0.3mg/dL (0.0-1.2) Aspartate Amino Transf (AST/SGOT) 20U/L (0-50) Alanine Aminotransferase (ALT/SGPT) 33U/L (0-44) Alkaline Phosphatase 70U/L (25-150) Total Protein 6.9g/dL (6.4-8.4) Albumin 4.0g/dL (3.4-5.0) Vancomycin Level Trough 15.2mcg/mL Creatinine 0.92mg/dL (0.76-1.27) Exam General: Alert, Oriented X3, Cooperative, No Acute Distress Lungs: Clear to Auscultation, Clear to Percussion Lower Extremities: Left: Extremity warm Lower Extremity Pulses: Palpable: Left Dorsalis Pedis Left Posterior Tibal Surgical Cast or Splint: None Additional Information: Digit continues to be edematous although less intensely erythematous, scant amount of serous drainage from the distal aspect of the toe noted. Assessment & Plan Impression Osteomyelitis fourth digit left foot Problems: Plan Proceed to the operating room today for amputation of the fourth digit which will initially involve transection of the proximal phalanx in an attempt to maintain the integrity of the metatarsal phalangeal joint however if intraoperatively the bone appears osteomyelitic I will proceed with disarticulation amputation and reviewed this plan with the patient. The intended surgical site is marked, consents have been signed. No warrantees have been made or implied regarding postoperative results. Marco Colindres DPM Aug 02, 2017 11:37
[2017-08-02] MEDS ORDERED: Lactated Ringer's 1,000 ML IV ONE (12:51)
--- NOTE | 2017-08-02 12:51 | NUR ---
OR Pt. was transferred to OR at 1245. Report given to OR nurse.
[2017-08-02] MEDS ORDERED: EPHEDrine Sulfate 50 mg/mL Inj IVPUSH PRN (13:10)
[2017-08-02] MEDS ORDERED: HYDROmorphone 1 mg/mL Inj IVPUSH PRN (13:10)
[2017-08-02] MEDS ORDERED: Lactated Ringer's 1,000 ML IV SCH (13:10)
[2017-08-02] MEDS ORDERED: fentaNYL-PF 50 mCg/mL 2 mL Inj IVPUSH PRN (13:10)
[2017-08-02] MEDS ORDERED: Ondansetron 2 mg/mL 2 mL Inj IVPUSH PRN (13:10)
[2017-08-02] MEDS ORDERED: Atropine 0.4 mg/mL Inj IVPUSH PRN (13:10)
[2017-08-02] MEDS ORDERED: Phenylephrine 10,000 mCg/mL Inj IVPUSH PRN (13:10)
[2017-08-02] MEDS ORDERED: Labetalol 5 mg/mL 20 mL Inj IV PRN (13:10)
[2017-08-02] MEDS ORDERED: MetoCLOpramide 5 mg/mL 2 mL Inj IVPUSH PRN (13:10)
[2017-08-02] MEDS ORDERED: Lactated Ringer's 500 ML IV PRN (13:10)
--- NOTE | 2017-08-02 13:10 | PCM.HPANE ---
Patient Data Surgeon Admitting Provider: Attending Provider:Lion Leyva MD Primary Care Physician:Anuradha Keenan Other Provider:Day Steele Anesthesia Reason for Visit Left Ring Finger Proximal Phalangeal Fracture Ht/WT & BMI Height (Feet): 6 Height (Inches): 1 Weight (Kilograms): 100.2 Body Mass Index .00 Allergies Coded Allergies: No Known Allergies (Unverified , 07/28/17) Past Anesthesia History Anesthesia History: Denies:: Abnormal Airway, Anesthesia Reactions, Difficult Intubation, Fam Anesthesia Reaction, Fam Malignant Hypertherm, Malignant Hyperthermia Diabetes History Hx Diabetes?: No MRSA MRSA: No Medications Hypertension Medication: No Home Meds Incl Beta Benny: No Reported Medications Amlodipine 10 Mg [id number] Mg PO DAILY Ref 0 07/28/17 Discontinued Reported Medications Sulfamethoxazole/Trimeth 800-160 mg (Bactrim DS)1 Each Tablet1 Tablet PO BID Ref 0 07/28/17 Ibuprofen 800 Mg [id number] Mg PO TID PRN For Pain Ref 0 07/28/17 Lorazepam 1 Mg Tablet1 Mg PO TID PRN For Anxiety Ref 0 07/28/17 History History of ENT Problems?: No HEENT History: Denies:: Cataracts Glaucoma Hearing Problem Denture Type: None Teeth Condition: Broken Teeth Tooth Decay Missing Teeth Hx of Heart Problems?: No Cardiovascular History: Denies:: AICD Abdominal Aortic Aneurism Atrial Fibrillation Cardiac Surgery Chest Pain Coronary Artery Disease Edema Heart Murmur Hypertension Pacemaker Peripheral Vascular Rheumatic Fever Thrombophlebitis Valvular Heart Disease Hx of Respiratory Problem?: No Respiratory History: Denies:: Asthma COPD Chest Surgery Cough Dyspnea Emphysema Hemoptysis Oxygen Administration Pneumonia Pulmonary Embolism Tuberculosis Use of C-PAP Machine Use of Inhalers / NEBS Hx Neurologic Problems?: No Neurological History: Denies:: Alzheimer's Disease CVA Dementia Dizziness Headaches Multiple Sclerosis Parkinson's Disease Seizures TIA Hx of GI Problems?: No Hx of Problems?: No HX of Peritoneal Dialysis: No Male Hx: Denies:: Prostate Problems Scrotal Mass Testicular Surgery Skin History: Denies:: History Skin Disorders? Pressure Ulcers Hx Musculoskeletal Problems?: No Musculoskeletal History: Denies:: Back Injury Degenerative Joint Fibromyalgia Joint Replacement Musculoskeletal Trauma Myasthenia Gravis Osteoarthritis Rheumatoid Arthritis Systemic Lupus Hx of Psycho/Social Problems?: No Hx Surgeries?: No Hx Any Other Health Problems?: No Other History: Denies:: Cancer Endocrine Disease Hospitalization Thyroid Disease History Blood Transfusions: Denies:: Accept Blood Products? Blood Transfuse Reaction Blood Transfusions Hx Diabetes: No Hx Substance Use: No Smoking Status: Unknown if Ever Smoker Have You Smoked inLast 12 mo: Yes Stop/Bang S-Snoring: Do You Snore Loudly: No T-Tired: feel tired, fatigued: No O-Obsered: Observed not breath: No P-Blood Pressure: treated: No B- Body Mass Index > 35 kg/m2: No A- Age over 50: Yes N- Neck Large Circumference: No G- Gender Male: Yes VIPIN Total Score: 2 Risk Assessment Category Category 1A: Patient has history of documented sleep apnea, and HAS NOT received any narcotic, sedative or anesthesia administration during this stay. Category 1B: Patient has history of documented sleep apnea, and HAS received any narcotic , sedative or anesthesia administration during this stay Category 2: Patient has SUSPECTED Obstructive Sleep Apnea, and HAS received any narcotic , sedative or anesthesia administration during this stay. Category 3: Patient has SUSPECTED Obstructive Sleep Apnea and HAS NOT received narcotic, sedative or anesthesia administration during this stay. Category 4: Outpatient in Procedural Areas with known sleep apnea or who screen positive for High Risk via the STOP/BANG questionnaire. Exam Exam Vital Signs Vital Signs Date Time Temp Pulse Resp B/P Pulse Ox O2 Delivery O2 Flow Rate FiO2 07/30/17 10:15 36.4 62 16 151/95 97 Room Air General Appearance: Alert, Oriented X3, Cooperative, No Acute Distress HEENT/AIRWAY: MP 2, Neck Movement (FROM), Mouth Opening (3 FBMO) Lungs: Clear to Auscultation, Normal Air Movement Heart: Exam Unremarkable, Regular Rate/Rhythm, No Murmurs/Rubs/Gallops Plan Impression Patient chart reviewed, patient interviewed and anesthestic plan with risks, benefits, and alternatives discussed, and informed consent obtained. NPO per Anesth. Guidelines: Yes ASA Physical Status: ASA2 Mod Systemic Disease Anesthetic Plan: GA Bene/Risks/Altern/Consents: Yes HP Complete Prior to Induction: Yes Mamadou Wesley MD Jul 30, 2017 10:44
[2017-08-02] MEDS ORDERED: Bupivacaine-MPF 0.5% 30 mL Inj INFILTRATE ONE (13:13)
--- NOTE | 2017-08-02 14:06 | PCM.PODPO ---
Podiatry Operative Report Date of Service: Aug 02, 2017 Date of Service Aug 02, 2017 Pre Operative Diagnosis Osteomyelitis fourth toe left foot Post Operative Diagnosis Same Procedure Disarticulation amputation fourth metatarsal phalangeal joint left foot Surgeon Surgeon: Lion Leyva MD Assistants: None Indication for Procedure Same Findings Same Details of Procedure Patient returns prior to the operating suite and placed on the table in supine position. Surgical timeout was observed and upon initiation of general anesthesia by the anesthesiologist a proximal digital block consisting of 9 cc 1 % lidocaine plain and 0.5% Marcaine plain was performed area a well-padded pneumatic ankle tourniquet was applied and the foot prepped and draped in the usual aseptic manner. The tourniquet was inflated to 250 mmHg. The intended incisions were marked with a skin scribe describing vertically oriented fishmouth type incision on the medial and lateral aspect of the toe and extending mid sagittal plate to the fourth medical tarsal head. The base of the phalanx was visualized and noted to exhibit a somewhat grayish discoloration therefore decision was made to proceed with disarticulation amputation so as not to leave any residual infected bone. Dissection continued via sharp incision and bleeders were cauterized with Bovie. The dorsal and plantar tendons were transected, collateral ligaments of the joint were transected and the digit was removed from the surgical field. Cauterization of visible bleeders was performed using the Bovie and the site was copiously irrigated with antibiotic solution. The deep tissues were reapproximated over the metatarsal head using 4-0 Vicryl more superficial deep tissues also closed with 4-0 Vicryl and skin and subcutaneous tissues were closed with 3-0 Prolene. Tourniquet was released normal perfusion returned promptly to the wound margins and slight postoperative bleeding was stayed with several minutes of direct pressure. A Xeroform dressing was applied followed by a mildly compressive fluff gauze bandage. The patient was extubated uneventfully and left the operating suite in apparently satisfactory condition, there were no complications. Bone and soft tissue sent to pathology for gross and microscopic exam, aerobic swab culture obtained from the tissues about the fourth metatarsal head. Grafts, Implants: None Complications There were no periprocedural complications identified. Condition Stable Anesthetic Administered: GA, MAC Drains: None Catheters: None Output, Estimated Blood Loss: 10 Blood Admin during surgery: No Surgical Cast or Splint: None, Other Surgical Specimen Removed: Yes Specimen sent to Pathology: Yes Post Operative Plan Patient will return to the first floor, continue on Zosyn, will reevaluate wound tomorrow, possible DC with outpatient follow-up on 01/04/2017. Marco Colindres DPM Aug 02, 2017 14:05
--- NOTE | 2017-08-02 14:55 | PCM.ANEP1 ---
Post Anesthesia PACU Phase 1 Assessment Vital Signs Vital Signs Date Time Temp Pulse Resp B/P Pulse Ox O2 Delivery O2 Flow Rate FiO2 08/02/17 14:34 36.0 60 18 147/101 95 Room Air 08/02/17 14:15 36.4 61 17 131/83 98 Nasal Cannula 2 08/02/17 14:05 55 11 128/75 97 Nasal Cannula 2 08/02/17 14:00 62 14 132/83 96 Nasal Cannula 2 08/02/17 13:55 56 14 122/94 99 Nasal Cannula 2 08/02/17 13:48 36.4 63 11 139/91 08/02/17 12:11 36.6 56 18 141/90 97 Room Air 08/02/17 07:53 60 18 165/94 96 Room Air Anesthetic Administered: GA Level of Alertness: Awake, talking COATES's with Equal Strength: Yes Pain: No Pain Scale Score: 2 Nausea or Vomiting: No CV Function & Hydration Stable: Yes Airway Device: Oxygen Delivery: Room Air Lungs: Clear to Auscultation, Normal Air Movement Dermatome Level: Full Sensation PACU Phase 2 Assessment Complications: No Follow up Care: N/A Patient Instructions Provided: N/A Mamadou Wesley MD Aug 02, 2017 14:55
--- NOTE | 2017-08-02 15:31 | DRSVH ---
PROCEDURE: X-RAY LEFT FOOT COMPLETE, MINIMUM THREE VIEWS ([id number]) INDICATIONS: immediate post-op TECHNIQUE: 3 views of the foot were acquired. COMPARISON: [facility], CR, XR FOOT 3VW LT, 07/31/2017, 11:12. FINDINGS: Bones: There is interval amputation of the 4th toe phalanges at the level of the metatarsophalangeal joint. No acute fractures or dislocations. No bony erosions. Soft tissues: There are postsurgical changes with soft tissue edema in the surgical bed. IMPRESSION: 1. Postsurgical changes status post 4th toe amputation. Dictated by: Conner Gonzalez M.D. on 08/02/2017 at 15:23 Approved by: Conner Gonzalez M.D. on 08/02/2017 at 15:29
--- NOTE | 2017-08-02 15:39 | NUR ---
Post-op Pt. returned to [facility] at 1430. On arrival, he was alert and oriented, COATES. Pt. tolerated his lunch, no GI complaints after oral intake. Instructed pt. and regarding partial weight bearing on L. leg, keep L.LE elevated, and use of post-op shoes. Pt. reported no pain.
[2017-08-02] MEDS: Polyethylene Glycol (PEG) 17 Gm Powder PO PRN (17:25)
--- NOTE | 2017-08-03 03:45 | NUR ---
Activity/pain Pt rating pain to left foot 4/10 and Langley 2 tabs q 4 hrs has been effective for pain control per pt. Left foot dressed with Kermit wrap and is CDI, minimal old blood shadow over pinky toe. Pt is heel touch wt bearing and has been wearing the boot when up ambulating. Tolerating general diet and is voiding without issues.
[2017-08-03] MEDS: Piperacillin-Tazo 3.375 Gm Inj 3.375 GM in Dextrose 5% Minibag Plus 50 ML IV SCH ×2 (04:02→12:50)
[2017-08-03] MEDS: HYDROcodone-APAP 5-325 mg Tablet PO PRN ×3 (04:02→12:51)
[2017-08-03 04:42] VITALS: BP 130/79; PULSE 60; RESP 18; O2SAT 97
[2017-08-03 05:42] LABS: BASOPHILS % (AUTO) 0.3 % (0-3); EOSINOPHILS % (AUTO) 0.8 % (0-5); MONOCYTES % (AUTO) 8.9 % (4-12); Mean Corpuscular Hemoglobin 31.1 pg (27.0-35.0); Mean Corpuscular Volume 89.8 fL (81-100); NEUTROPHILS % (AUTO) 75.4 % (40-74); Platelet Count 226 bil/L (150-400)
[2017-08-03] MEDS: Polyethylene Glycol (PEG) 17 Gm Powder PO PRN (10:21)
--- NOTE | 2017-08-03 11:10 | NUR ---
Social Work- Readiness for Discharge/Multidisciplinary Rounds Data: EMR reviewed. Pt is on day 4 of hospitalization. Pt discussed in multidisciplinary rounds. Pt is POD 1 s/p amputation. Podiatry is consulting. Pt is a possible discharge today pending Podiatry, more likely d/c in 1-2 days. SW met with pt at bedside today to confirm d/c plan. Pt confirms that he will self-report back to [facility] and that his will transport him. No other discharge needs identified. Per chart review pt has been up ambulating with his boot. SW encouraged pt to contact with any questions or d/c needs. Pt agreeable. SW continues to follow . Assessment: Pt who is independent at baseline. Plan: Pt confirms that he will self-report back to [facility] and that his will transport him. No other discharge needs identified. SW continues to follow . GAMAL Almanzar
--- NOTE | 2017-08-03 11:47 | NUR ---
Evaluation completed. Please go to "Notes" then click on "Assessments and Notes" (bottom left corner of screen). Then select appropriate discipline tab on top of screen.
[2017-08-03 12:11] VITALS: BP 140/85; PULSE 62; RESP 20; O2SAT 97
--- NOTE | 2017-08-03 14:09 | PCM.PNPOD ---
Subjective Date of Service: Aug 03, 2017 Date of Service: Aug 03, 2017 Visit Information: Reason for Visit Left Ring Finger Proximal Phalangeal Fracture Surgery/Surgery Date I&D L FOOT 07/30, AMP OF 4TH TOE/L FOOT 08/02/17 Post-Op Day # Date of Admission: Jul 30, 2017 at 16:12 Hospital Day # Subjective: 57-year-old male seen 24 hour status post amputation fourth digit left foot and is without complaint, had only mild postoperative discomfort well controlled with by mouth pain medication. Objective Vital Sign - Last Date Time Temp Pulse Resp B/P Pulse Ox O2 Delivery O2 Flow Rate FiO2 08/03/17 12:11 36.4 62 20 140/85 97 Room Air 08/02/17 14:15 2 Intake and Output 08/02/17 08/02/17 08/03/17 Cumulative From/Thru 14:59 22:59 06:59 07/28/17 11:38 - 08/03/17 06:21 Intake Total 412.5 ml 938 ml 938 ml 11362.5 ml Output Total 1700 ml 1425 ml 23792 ml Balance 412.5 ml -762 ml -487 ml -1859.5 ml Intake Oral 820 ml 800 ml 6917 ml IV Total 412.5 ml 118 ml 138 ml 5793.5 ml Output Urine Total 1700 ml 1425 ml 99779 ml Estimated Blood Loss 20 ml # Bowel Movements 0 0 Result Diagram: 08/03/17 0515 08/03/17 0515 Lab Test 07/30/17 17:10 08/01/17 00:01 08/03/17 05:15 Total Bilirubin 0.3mg/dL (0.0-1.2) Aspartate Amino Transf (AST/SGOT) 20U/L (0-50) Alanine Aminotransferase (ALT/SGPT) 33U/L (0-44) Alkaline Phosphatase 70U/L (25-150) Total Protein 6.9g/dL (6.4-8.4) Albumin 4.0g/dL (3.4-5.0) Vancomycin Level Trough 15.2mcg/mL White Blood Count 7.4th/mm3 (3.8-10.1) Red Blood Count 4.21mil/mm3 (4.40-5.80) Hemoglobin 13.1g/dL (13.8-17.2) Hematocrit 37.8% (41.0-50.0) Mean Corpuscular Volume 89.8fL (81-100) Mean Corpuscular Hemoglobin 31.1pg (27.0-35.0) Mean Corpuscular Hemoglobin Concent 34.7% (32.0-37.0) Red Cell Distribution Width 12.1% (12.3-15.4) Platelet Count 226bil/L (150-400) Neutrophils (%) (Auto) 75.4% (40-74) Lymphocytes (%) (Auto) 14.3% (14-46) Monocytes (%) (Auto) 8.9% (4-12) Eosinophils (%) (Auto) 0.8% (0-5) Basophils (%) (Auto) 0.3% (0-3) Sodium Level 140mEq/L (134-144) Potassium Level 4.2mEq/L (3.5-5.2) Chloride Level 104mEq/L (97-108) Carbon Dioxide Level 24mmol/L (18-29) Blood Urea Nitrogen 14mg/dL (6-24) Creatinine 0.90mg/dL (0.76-1.27) Estimat Glomerular Filtration Rate 92mL/min (>59) Glucose Level 112mg/dL (60-99) Calcium Level 8.8mg/dL (8.5-10.1) Exam General: Alert, Oriented X3, Cooperative, No Acute Distress Lungs: Clear to Auscultation, Normal Air Movement Lower Extremities: Left: Extremity warm Lower Extremity Pulses: Palpable: Left Dorsalis Pedis Left Posterior Tibal Surgical Cast or Splint: None, Other Additional Information: Dressing dry and intact, incision well coapted, no chon-incisional erythema warmth or evidence of infection. Medial aspect of the fifth toe slightly macerated. Assessment & Plan Impression Amputation site appears to be healing primarily without evidence of infection. Problems: Plan Betadine solution dressing applied followed by a noncompressive gauze bandage. From a podiatric standpoint patient could be discharged with outpatient follow- up, ambulating on the left heel in a postoperative shoe. Patient indicates he would like to proceed with the ORIF of finger fracture per Dr. Leyva, I will contact her to determine whether she would like to perform this during this hospitalization or perhaps as an outpatient. Marco Colindres DPM Aug 03, 2017 14:09
--- NOTE | 2017-08-03 14:38 | PCM.DIMED ---
Discharge Instructions Date of Service Aug 03, 2017 Dates of Hospitalization Jul 30, 2017 at 16:12 Discharge Diagnosis Discharge Diagnosis # Cellulitis/abscess/osteomyelitis of the left fourth digit foot, sp amputation #Subactue laceration to left leg above ankle #Broken finger left 4th #Hypertension Diet Discharge Diet: Heart Healthy Activity Discharge Activity: Limited until seen by PCP Call your provider Call your provider for: Fever or Chills Patient Instructions Follow-up plan 1- Follow up with Dr. Leyva from orthopedics, you have an appointment , 08/05/17 at 11:15 AM for your finger 2- Follow up with Dr Colindres (podietry) this week or early next week Attending's Statement 35 min time sent discharging patient today so far. Clarence Jacob MD Aug 03, 2017 14:38
[2017-08-03] MEDS ORDERED: CEPH-512 PO (14:41)
--- NOTE | 2017-08-03 14:53 | PCM.DC.MED ---
Discharge Summary Date of Service Aug 03, 2017 Dates of Hospitalization Date of Hospital Admission Jul 30, 2017 at 16:12 Date of Discharge: Aug 03, 2017 Providers: Admitting Physician: Lion Leyva MD Primary Care Physician: Anuradha Keenan Attending Physician: Clarence Jacob MD Diagnosis at Time of Discharge Diagnosis at Time of Discharge # Cellulitis/abscess/osteomyelitis of the left fourth digit foot, sp amputation #Subactue laceration to left leg above ankle #Broken finger left 4th #Hypertension Consultations Date of service Jul 30, 2017 History of Present Illness 57-year-old male evaluated resting comfortably in the same day surgery unit. Podiatry consult it for evaluation of left fourth toe abscess/cellulitis. Patient states that he had a left fourth digit hammertoe correction performed by Dr. Maya burr a few years ago. This patient is currently incarcerated at [facility]. Patient states that he was recently receiving antibiotics however his toe has progressed and worsened. He states that recently saw Dr. Leyva for treatment of a finger fracture and was scheduled for surgical intervention. At the time of his preoperative evaluation he was prescribed additional oral antibiotics however this patient states that he never received these antibiotics and has not been taking them. Due to the issue with his toe his open reduction internal fixation of his finger has been canceled today. Patient denies any significant past medical history. Allergy Allergies: Coded Allergies: No Known Allergies (Unverified , 07/28/17) Medications Amlodipine (Amlodipine) 10 Mg Tablet 10 MG PO DAILY Past Medical History Surgeries: No Medical History: Surgical History: Social History Hx Substance Use: No Smoking Status: Unknown if Ever Smoker Podiatry Consult Exam Vital Signs Vital Sign - Last Date Time Temp Pulse Resp B/P Pulse Ox O2 Delivery O2 Flow Rate FiO2 07/30/17 10:15 36.4 62 16 151/95 97 Room Air Exam General: Alert, Oriented X3, Cooperative, No Acute Distress Neuro: Normal Speech, Strength at 5/5 x4 ext, Sensation Intact Lower Extremities: Left: Extremity warm Lower Extremity Pulses: Palpable: Left Dorsalis Pedis Left Posterior Tibal Podiatry WOUND : Wound Location/Description Erythema of the left fourth digit extending to the fourth metatarsal phalangeal joint. There is an abscess of the left fourth distal digit with mild purulent drainage noted. No loosening of the toenail is noted. Mild malodor is present. Pedal pulses are palpable. Gross sensation is intact. Patient has a history of arthrodesis of the left fourth digit with an intramedullary screw Assessment & Plan Assessment Abscess cellulitis with possible osteomyelitis of the left fourth toe Problems: Plan Patient evaluated today. This patient will require urgent incision and drainage of the left fourth digit abscess with removal of underlying hardware. I have discussed with the patient today that there is a significant possibility he may have already developed osteomyelitis of his fourth digit which may require amputation in the near future. Open reduction internal fixation of his finger has been canceled by Dr. Leyva today and he will be scheduled for surgical intervention of his left foot instead. I recommend admission to [facility] for IV antibiotic therapy. IV antibiotics will be started at this time with broad-spectrum antibiotics vancomycin/Zosyn, wound cultures will be taken during surgery and followed closely alter antibiotic choice as needed. This patient is currently partial weightbearing to his left heel as tolerated. This information has been discussed with the patient and the office or in charge of monitoring him during surgery today. Car Carvalho DPM Procedures XRay, CTs & MRIs XR IMPRESSION: Postoperative changes of the left 4th toe without acute fracture. Mild lucency surrounding the screw threads within the proximal phalangeal portion is suggestive of orthopedic hardware loosening versus less likely infection. Brief History Patient was past medical history of hypertension, alcoholism(last drink 2 weeks ago), left fourth digit hammertoe correction performed by Dr. Maya burr a few years ago. Patient developed pain in his 4th toe. He was evaluated by senior manufacturing technician and advised admission to the hospital for evaluation and treatment of Abscess cellulitis with possible osteomyelitis of the left fourth toe with urgent incision and drainage of the left fourth digit abscess with removal of underlying hardware. Today patient underwent I&D. After the surgery he is doing well. Cultures were sent today. Hospital Course 57-year-old male with a past medical history of hypertension, alcoholism, status post left 4th digit hammertoe correction several years ago admitted for evaluation of pain in the L fourth left toe. Patient underwent I and D with hardware removal today. Cultures were sent. Patient was started on vancomycin and Zosyn IV. # Cellulitis/abscess/osteomyelitis of the left fourth digit foot, poa, active - status post I&D, removal of heardwear 07-30-17 - status post disacticulation amputation forth metatarsal phalangeal joint - MSSA on culture of abscess-discharge home today, with keflex 500 qid for 7 days -follow up with Neil Colindres podietrist this week or early next week #Subactue laceration to left leg above ankle, poa, stable -sutures placed ER about 07-14-17 -removed sutures #Broken finger left 4th, poa, active -fractured about 07-15-18 -appointment with Dr Wright (orthopedics) this 11:15 AM the #Hypertension - Stable - patient does not want to continue amlodipine will discuss with his doctor, will dc Alcoholism - last drink 2 weeks ago - No need for CIWA DVT PROPHYLAXIS: heparin Code status: full code Labs, radiology tests reviewed. Plan of care, medication side effects, home medication, diagnostic procedures and available alternatives were discussed and reviewed with patient. All questions answered. Patient verbalized understanding, approved and agreed to plan of care. - Exam Vital Signs (Last) Date Time Temp Pulse Resp B/P Pulse Ox O2 Delivery O2 Flow Rate FiO2 08/03/17 12:11 36.4 62 20 140/85 97 Room Air 08/02/17 14:15 2 Exam Skin: warm and dry 5-6 cm healing laceration to outer lower left leg, sutures removed yesterday, not infected HENT; dry no lesions Eyes; dante eom intact CV; reg no murmur Resp; Clear GI; soft non acute benign Neuro; CN 2-12 intact, no focal defects Extre; Bandages to Left foot, Bandages to left hand, clean Test 07/30/17 17:10 08/01/17 00:01 08/03/17 05:15 Total Bilirubin 0.3mg/dL (0.0-1.2) Aspartate Amino Transf (AST/SGOT) 20U/L (0-50) Alanine Aminotransferase (ALT/SGPT) 33U/L (0-44) Alkaline Phosphatase 70U/L (25-150) Total Protein 6.9g/dL (6.4-8.4) Albumin 4.0g/dL (3.4-5.0) Vancomycin Level Trough 15.2mcg/mL White Blood Count 7.4th/mm3 (3.8-10.1) Red Blood Count 4.21mil/mm3 (4.40-5.80) Hemoglobin 13.1g/dL (13.8-17.2) Hematocrit 37.8% (41.0-50.0) Mean Corpuscular Volume 89.8fL (81-100) Mean Corpuscular Hemoglobin 31.1pg (27.0-35.0) Mean Corpuscular Hemoglobin Concent 34.7% (32.0-37.0) Red Cell Distribution Width 12.1% (12.3-15.4) Platelet Count 226bil/L (150-400) Neutrophils (%) (Auto) 75.4% (40-74) Lymphocytes (%) (Auto) 14.3% (14-46) Monocytes (%) (Auto) 8.9% (4-12) Eosinophils (%) (Auto) 0.8% (0-5) Basophils (%) (Auto) 0.3% (0-3) Sodium Level 140mEq/L (134-144) Potassium Level 4.2mEq/L (3.5-5.2) Chloride Level 104mEq/L (97-108) Carbon Dioxide Level 24mmol/L (18-29) Blood Urea Nitrogen 14mg/dL (6-24) Creatinine 0.90mg/dL (0.76-1.27) Estimat Glomerular Filtration Rate 92mL/min (>59) Glucose Level 112mg/dL (60-99) Calcium Level 8.8mg/dL (8.5-10.1) Discharge Medications Discharge Medications Cephalexin (Keflex) 500 Mg Capsule 500 MG PO QID Prescribed by: Clarence JACOB MD Followup Plan Follow-up plan 1- Follow up with Dr. Leyva from orthopedics, you have an appointment , 08/05/17 at 11:15 AM for your finger 2- Follow up with Dr Colindres (podietry) this week or early next week Discharge Diet: Heart Healthy Discharge Activity: Limited until seen by PCP copies to: Marco ColindresM; Car Carvalho DPM; Amparo Keenan MD, D Geoffrey MD Aug 03, 2017 14:53
--- NOTE | 2017-08-03 17:40 | NUR ---
Social Work- Discharge (Late Note) Data: EMR reviewed. Pt is on day 4 of hospitalization. Pt discharged today. No discharge needs, spouse to transport via POV. Pt will self-report back to intermediate. Assessment: Pt who is independent at baseline. Plan: Pt to self-report back to intermediate, will transport. No other discharge needs identified. Teresa Kate PHOTO OPTICS TECHNICIAN
[2017-08-06] MEDS ORDERED: CEPH500T PO (12:48)
[2017-08-06] MEDS ORDERED: SULF-239 PO (12:48)
--- NOTE | 2017-08-06 15:40 | PATH ---
SURGICAL PATHOLOGY Attending Physician:Marco Colindres DPM CASE STATUS: Signed Out PATIENT NAME: CHIOMA PATEL PID: [id number] : 1960 DATE COLLECTED:08/02/2017 00:00 SPECIMEN: Toe(s), Amputation, Non-Traumatic CLINICAL HISTORY: OSTEOMYELITIS FOURTH TOE LEFT FOOT 1). LEFT 4TH TOE OSTEOMYELITIS FINAL DIAGNOSIS: 1.LEFT FOURTH TOE, OSTEOMYELITIS, DISARTICULATION AMPUTATION: - ARTICULAR SURFACE WITH VIABLE BONE AND OVERLYING ARTICULAR CARTILAGE. NO EVIDENCE OF ACTIVE INFLAMMATION. - SKIN WITH ULCER AND EVENING ANCHOR SECTIONS OF BONE WITH NECROSIS AND MIXED ACTIVE AND CHRONIC INFLAMMATION. - SKIN AND SOFT TISSUE RESECTION MARGINS ARE VIABLE WITH MIXED ACTIVE AND CHRONIC INFLAMMATION. - NO EVIDENCE OF MALIGNANCY. ICD10 M86.179 GROSS DESCRIPTION: The specimen is received in formalin, labeled with the patient's name, sublabeled as last 4th toe osteomyelitis, and consists of a disarticulated toe (5.4 cm AP, 2.3 cm SI, 2.0 cm ML). The toenail is present. The skin is meyers-white smooth and shiny. A kurtz-brown open ulcer (supine 6 x 0.4 cm) is centrally located on the tip of the toe. The proximal bone is hard and cannot be sliced with a scalpel. The distal bone is easily sliced with a scalpel and has a meyers soft porous cut surface. No nodules, masses, lesions or other ulcers are identified. Ink code: black- superior; orange-inferior. Section code: (A) bone articular surface; (B) skin and soft tissue resection margins; (C) ulcer, perpendicularly sectioned, patient portal representative; (D) distal bone, serially sectioned, patient portal representative. Note: The bone sections have been decalcified. 08/05/17 JM MICRO DESCRIPTION: See diagnosis. ICD-9 CODES: CPT CODES: 1: 69252, 81240 Electronically Signed Out Isiah Valencia MD [facility] [address], [place] [address] Technical component performed at [facility], [facility] [address], [place], [address]
== END 2017-08-03 15:30 | disposition home or self-care (01) | DRG 496 ==
LOC: SAS 09:58 → OSC 16:12 → SAS 16:12
PROVIDERS: ADMIT Orthopaedic Surgery; ATTEND Internal Medicine
PROC: 0QPR04Z Removal of Internal Fixation Device from Left Toe Phalanx, Open Approach (ICD-10-PCS; 2017-07-30)
PROC: 0J9R0ZZ Drainage of Left Foot Subcutaneous Tissue and Fascia, Open Approach (ICD-10-PCS; 2017-07-30)
PROC: 0Y6W0Z0 Detachment at Left 4th Toe, Complete, Open Approach (ICD-10-PCS; principal; 2017-08-02 09:00)
DX: M86.9 Osteomyelitis, unspecified (principal); L02.612 Cutaneous abscess of left foot; S62.615A Displaced fracture of proximal phalanx of left ring finger, initial encounter for closed fracture; L03.032 Cellulitis of left toe; I10 Essential (primary) hypertension; F10.20 Alcohol dependence, uncomplicated; B95.61 Methicillin susceptible Staphylococcus aureus infection as the cause of diseases classified elsewhere; S91.012D Laceration without foreign body, left ankle, subsequent encounter

== ENCOUNTER → 2017-08-10 | Day surgery (SDC) | payer OTHER ==
[2017-08-10] VITALS (8 sets, daily range): BP systolic 143–178; BP diastolic 82–120; PULSE 82–96; RESP 13–16; O2SAT 92–96
[~2017-08-10] VITALS: Ht 182.9 cm; Wt 101.8 kg
[~2017-08-10] MED LIST changes: -AMLO10TA3 PO; +Bupivacaine-MPF 0.5% 30 mL Inj INFILTRATE ONE; +CEPH500T PO; +CeFAZolin 2 Gm/50 mL D5W Duplex Bag IV ONE; +Dexamethasone 4 mg/mL Inj ONE; +EPHEDrine Sulfate 50 mg/mL Inj IVPUSH PRN; +Esmolol 10,000 mCg/mL 10 mL Inj ONE; +HYDROmorphone 1 mg/mL Inj IVPUSH PRN; +Lactated Ringer's 1,000 ML IV ONE; +Lactated Ringer's 500 ML IV PRN; +MetoCLOpramide 5 mg/mL 2 mL Inj IVPUSH PRN; +MetoCLOpramide 5 mg/mL 2 mL Inj ONE; +Ondansetron 2 mg/mL 2 mL Inj IVPUSH PRN; +Ondansetron 2 mg/mL 2 mL Inj ONE; +Phenylephrine 10,000 mCg/mL Inj IVPUSH PRN; +Propofol 10,000 mCg/mL 20 mL Inj ONE; +SULF-239 PO; +fentaNYL-PF 50 mCg/mL 2 mL Inj IVPUSH PRN; +fentaNYL-PF 50 mCg/mL 2 mL Inj ONE; +hydrALAZINE 20 mg/mL Inj IVPUSH PRN; +hydrALAZINE 20 mg/mL Inj ONE; +oxyCODONE-Acetamin 5-325 mg Tablet PO ONE; +oxyCODONE-Acetamin 5-325 mg Tablet PO PRN
[2017-08-10] MEDS: Lactated Ringer's 1,000 ML IV SCH ×2 (12:28→13:00)
--- NOTE | 2017-08-10 12:48 | PCM.HPANE ---
Patient Data Date of Service: Aug 10, 2017 Surgeon Admitting Provider: Attending Provider:Lion Leyva MD Primary Care Physician:Anuradha Keenan Other Provider:Day Steele Anesthesia Reason for Visit Displaced Left Ring Finger Proximal Phalangeal Fx Ht/WT & BMI Height (Feet): 6 Height (Inches): 1 Weight (Kilograms): 101.8 Body Mass Index 30.00 Allergies Coded Allergies: No Known Allergies (Unverified , 08/10/17) Past Anesthesia History Anesthesia History: Denies:: Abnormal Airway, Anesthesia Reactions, Difficult Intubation, Fam Anesthesia Reaction, Fam Malignant Hypertherm, Malignant Hyperthermia Diabetes History Hx Diabetes?: No MRSA MRSA: No Medications Hypertension Medication: No Home Meds Incl Beta Benny: No Reported Medications Cephalexin 500 Mg [id number] Mg PO QID #40 TABLET Ref 0 08/06/17 Sulfamethoxazole/Trimeth 400-80 mg (Bactrim)1 Each Tablet1 Tablet PO BID Ref 0 08/06/17 Discontinued Reported Medications Amlodipine 10 Mg [id number] Mg PO DAILY Ref 0 07/28/17 Discontinued Scripts Cephalexin (Keflex)500 Mg [id number] Mg PO QID #28 CAPSULE Ref 0 Prov:Clarence Jacob MD 08/03/17 History History of ENT Problems?: No HEENT History: Denies:: Abnormal Airway Cataracts Difficult Intubation Dysphagia Hearing Problem Sinus Problem TMJ Denture Type: None Teeth Condition: Within Normal Limits Hx of Heart Problems?: No Cardiovascular History: Denies:: AICD Abdominal Aortic Aneurism Atrial Fibrillation Cardiac Surgery Chest Pain Congestive Heart Failure Coronary Artery Disease Edema Heart Murmur Hypertension Irregular Heartbeat Pacemaker Rheumatic Fever Thrombophlebitis Valvular Heart Disease Hx of Respiratory Problem?: No Respiratory History: Denies:: Asthma COPD Chest Surgery Cough Dyspnea Emphysema Hemoptysis Oxygen Administration Pneumonia Pulmonary Embolism Tuberculosis Use of C-PAP Machine Hx Neurologic Problems?: No Neurological History: Denies:: Alzheimer's Disease CVA Dementia Dizziness Headaches Multiple Sclerosis Parkinson's Disease Seizures Hx of GI Problems?: No Hx of Problems?: No HX of Peritoneal Dialysis: No Male Hx: Denies:: Prostate Problems Scrotal Mass Testicular Surgery Skin History: Denies:: History Skin Disorders? Pressure Ulcers Hx Musculoskeletal Problems?: No Musculoskeletal History: Positive for:: Musculoskeletal Trauma (fx lt ring finger fx) Denies:: Back Injury Degenerative Joint Joint Replacement Osteoarthritis Rheumatoid Arthritis Systemic Lupus Hx of Psycho/Social Problems?: No Hx Surgeries?: Yes (Lt toe removed) Hx Any Other Health Problems?: No Other History: Denies:: Cancer Endocrine Disease Hospitalization (left toe infection) Thyroid Disease History Blood Transfusions: Positive for:: Accept Blood Products? Denies:: Blood Transfuse Reaction Blood Transfusions Hx Diabetes: No Hx Alcohol Use: NoHx Substance Use: No Smoking Status: Unknown if Ever Smoker Have You Smoked inLast 12 mo: Yes Stop/Bang S-Snoring: Do You Snore Loudly: No T-Tired: feel tired, fatigued: No O-Obsered: Observed not breath: No P-Blood Pressure: treated: No B- Body Mass Index > 35 kg/m2: No A- Age over 50: Yes N- Neck Large Circumference: No G- Gender Male: Yes VIPIN Total Score: 2 VIPIN Risk Assessment: Low Risk, <3 Yes Risk Assessment Category Category 1A: Patient has history of documented sleep apnea, and HAS NOT received any narcotic, sedative or anesthesia administration during this stay. Category 1B: Patient has history of documented sleep apnea, and HAS received any narcotic , sedative or anesthesia administration during this stay Category 2: Patient has SUSPECTED Obstructive Sleep Apnea, and HAS received any narcotic , sedative or anesthesia administration during this stay. Category 3: Patient has SUSPECTED Obstructive Sleep Apnea and HAS NOT received narcotic, sedative or anesthesia administration during this stay. Category 4: Outpatient in Procedural Areas with known sleep apnea or who screen positive for High Risk via the STOP/BANG questionnaire. Exam Exam Vital Signs Vital Signs Date Time Temp Pulse Resp B/P Pulse Ox O2 Delivery O2 Flow Rate FiO2 08/10/17 12:15 35.7 89 16 146/99 93 Room Air General Appearance: Alert, Oriented X3, Cooperative, No Acute Distress HEENT/AIRWAY: MP 3, Neck Movement (ok), Mouth Opening (ok) Lungs: Clear to Auscultation, Normal Air Movement Heart: Exam Unremarkable, Regular Rate/Rhythm, Normal S1, Normal S2, No Murmurs /Rubs/Gallops Meds/Labs/Diagnostics Admission Meds Current Medications Lactated Ringer's (Lr) 1,000 ml @ 120 mls/hr Q8H20M IV Last administered on t 12:28; Start 08/10/17 at 05:00; Stop 08/10/17 at 13:19 Plan Impression Patient chart reviewed, patient interviewed and anesthestic plan with risks, benefits, and alternatives discussed, and informed consent obtained. NPO per Anesth. Guidelines: Yes ASA Physical Status: ASA1 Normal Healthy Bene/Risks/Altern/Consents: Yes HP Complete Prior to Induction: Yes Mamadou Polanco MD Aug 10, 2017 12:48
--- NOTE | 2017-08-10 18:56 | PCM.ANEP1 ---
Post Anesthesia PACU Phase 1 Assessment Date of Service: Aug 10, 2017 Vital Signs Vital Signs Date Time Temp Pulse Resp B/P Pulse Ox O2 Delivery O2 Flow Rate FiO2 08/10/17 18:50 83 14 151/82 95 Nasal Cannula 4 08/10/17 18:45 36.4 83 13 177/92 92 Room Air 08/10/17 18:40 84 16 163/120 94 Room Air 08/10/17 18:35 82 15 152/112 93 Room Air 08/10/17 18:30 36 86 16 178/109 94 Simple Mask 8 08/10/17 12:15 35.7 89 16 146/99 93 Room Air Anesthetic Administered: GA Level of Alertness: Awake, talking Pain: Yes Pain Scale Score: 5 Nausea or Vomiting: No CV Function & Hydration Stable: Yes Airway Device: Oxygen Delivery: Room Air Lungs: Clear to Auscultation, Normal Air Movement PACU Phase 2 Assessment Complications: No Follow up Care: No Patient Instructions Provided: N/A Comments Initially had audible wheezing, determined to be from nasal passages and insistence on breathing through nose instead of mouth initially after surgery. HTN in PACU, titrated in hydralazine. 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 Mamadou Polanco MD Aug 10, 2017 18:56
--- NOTE | 2017-08-11 03:44 | OP ---
[address] [address] OPERATIVE REPORT PATIENT: CHIOMA PATEL : 1960 MR#: [id number] ADMIT: 08/10/2017 JOB ID: [id number] DATE OF SURGERY: PREOPERATIVE DIAGNOSIS(ES): Displaced left ring finger proximal phalangeal fracture, ICD 10 code S62.615A. POSTOPERATIVE DIAGNOSIS(ES): Displaced left ring finger proximal phalangeal fracture, ICD 10 code S62.615A. PROCEDURE: Open reduction and internal fixation, left ring finger comminuted proximal phalangeal fracture, CPT code 29865. SURGEON: Lion Leyva MD ANESTHESIA: General. COMMERCIAL CREDIT SPECIALIST: None. ESTIMATED BLOOD LOSS: Less than 5 mL. DRAINS: None. COMPLICATIONS: None. Metacarpal nerve block performed by surgeon for postoperative analgesia. SPONGE AND NEEDLE COUNT: Correct. IMPLANTS UTILIZED: Synthes 1.5 mm locking small fragment Y plate. INDICATIONS: This is a 57-year-old, right-hand dominant male, who sustained a left ring finger proximal phalangeal fracture that was somewhat comminuted. He had an infected toe and that had to be debrided and subsequently amputated last week. The patient has been on oral antibiotics, and he had received IV antibiotics. He grew methicillin-sensitive Staph aureus. His foot wound was clean and dry. No sign of infection. I therefore opted to proceed with surgery, as the fracture was just slightly over 3 weeks old. PROCEDURE IN DETAIL: Under adequate general anesthetic, a well-padded tourniquet was applied to the left upper extremity. The left arm was prepped and draped in sterile fashion. After appropriate time-out was called, the arm was elevated, exsanguinated, tourniquet inflated to 250 mmHg. A curvilinear incision was fashioned over the dorsal aspect of the proximal phalanx of the left ring finger. The extensor tendon was split longitudinally to allow for later repair, and also to expose the fracture fragments. The periosteum was then also split and saved for later repair. The patient already had early callus formation. The fracture was malrotated. I had to clear the debris from the entire length of the fracture in order to reduce the fracture. There was one small comminuted fragment as well. Care was taken to protect surrounding neurovascular structures. In order to vance the fracture into position, one small comminuted fracture piece that was loose was removed. I then stabilized the fracture with a temporary K-wire. A self-retaining bone clamp was utilized. I then drilled a 1.5 mm screw hole and placed it in a lag fashion across the fracture site. A Y plate, size 1.5 mm, was utilized. One screw hole needed to be cut off to customize the plate to fit the bone. The plate was then transfixed to the proximal phalanx with a combination of nonlocking and locking screws. I did leave screw holes open right along the fracture site itself. Image intensification pictures were taken confirming good position of the plate and screws. The temporary K-wire was removed. The wound was irrigated with saline. I did perform a metacarpal nerve block with 0.5% plain Marcaine for postoperative analgesia. Tourniquet was released. Minimal hemostasis required. The periosteum over the fracture site was closed with some interrupted sutures of 4-0 Vicryl. The extensor tendon was closed with a running suture for a portion of the repair of 4-0 nylon. The subcutaneous layers were closed with some interrupted sutures of 4-0 Monocryl. Skin was reapproximated proximally with a running baseball stitch with a combination of horizontal mattress suture. The distal portion of the wound was closed with interrupted horizontal mattress sutures of 4-0 nylon. Xeroform dry sterile bulky dressings were applied. The patient was placed in a volar and dorsal fiberglass splint. The patient was taken to the recovery room in stable condition. Sponge and needle count correct. No complications. PLAN: The patient needs to contact the office tomorrow so we can organize hand therapy for him and for them to make him a custom hand splint and begin some finger range of motion. He can anticipate some stiffness in that finger due to the severity of the fracture. He was also discharged home on Percocet 10/325, as well as Keflex. His toe wound was checked and it was clean and dry, but sutures are still in place. He will also need to follow up with Podiatry for that toe amputation. The patient may be seen in the office in two weeks for suture removal.
--- NOTE | 2017-08-11 20:08 | DRSVH ---
PROCEDURE: X-RAY FINGERS, TWO VIEWS LEFT INDICATIONS: LEFT 4TH DIGIT ORIF TECHNIQUE: AP hand, 2 views of the fourth finger(s) acquired. COMPARISON: [facility], CR, XR FINGER(S) LT 2VW, 07/27/2017, 8:00. FINDINGS: Bones: Near-anatomic alignment status post ORIF of spiral fracture involving the proximal shaft of th e fourth proximal phalanx. Fixation plate and associated fixation screws present in expected positio n. Small butterfly fracture component seen along the ulnar aspect at the fracture plane. Soft tissues: No suspicious soft tissue calcifications. IMPRESSION: Near-anatomic alignment status post ORIF of spiral, mildly comminuted fracture involving the fourth proximal phalanx. Dictated by: Stanislaw FRANKS Interpreted: Jamila Mckenzie MD on 08/11/2017 at 8:18 Approved by: Jamila Mckenzie M.D. on 08/11/2017 at 20:06
== END | disposition home or self-care (01) ==
LOC: SAS 11:58
PROVIDERS: ATTEND Orthopaedic Surgery
DX: S62.615A Displaced fracture of proximal phalanx of left ring finger, initial encounter for closed fracture (principal); Y04.0XXA Assault by unarmed brawl or fight, initial encounter; F17.210 Nicotine dependence, cigarettes, uncomplicated
CPT/HCPCS: 26735; 73140; C1713; J0360; J0690; J1100; J2405; J2704; J2765; J3010; J7120